=== PATIENT | male | born 1960 | race Caucasian/White ===

== ENCOUNTER → 2019-11-13 11:57 | Outpatient (CLI) | payer OTHER, BC, SELFPAY ==
--- NOTE | 2019-11-13 12:06 | XR_ITS ---
PROCEDURE: XR SHOULDER RT MIN 2V CLINICAL INDICATION: IMPINGEMENT OF RIGHT SHOULDER COMPARISON: No exams were available for comparison FINDINGS: No fracture, dislocation, lytic change, or blastic change evident. No significant degenerative change IMPRESSION: Negative right shoulder Dictated by: Zia Conway MD 11/13/2019 12:28 Electronically signed by Zia Conway MD in [place] 11/13/2019 12:28
== END ==
PROVIDERS: PCP Family Medicine; Visit Provider Internal Medicine Adolescent Medicine
DX: M75.41 Impingement syndrome of right shoulder (principal)
CPT/HCPCS: 73030

== ENCOUNTER 2019-12-20 11:00 | Outpatient (RCR) | payer OTHER, BC, SELFPAY ==
--- NOTE | 2019-11-25 11:22 | HMH.OTOPEV ---
OT Inpatient Evaluation Rehab OT Outpatient Eval Start: 11/25/19 10:18 Freq: Status: Active Protocol: Document 11/25/19 10:20 TRA (Rec: 11/25/19 10:42 TRA [id number]) Electronically Signed By Dayan Blevins, OT 11/25/19 10:20 Outpatient Therapy Subjective History Subjective History 59 year old male being referred to OP OT services after work related injury after reaching out and felt his right shoulder pop ~3 weeks ago. Patient stated inconsistent pain with right shoulder. Patient stated pain at worst is 5/10 and has been taking OTC pain medicine and applying ice to ease the pain. Patient reported no pain or injury with R wrist nor R hand per order stated. OT initial evaluation completed. View for more details. Chief Complaint Pain Symptom Type Ache Symptoms Relieved By Ice,OTC Meds Symptoms Aggravated By Physical Activity,Lifting Prior Functional Limitations None Current Functional Limitations Reaching,Lifting Symptom Description Intermittent Level of pain today (0-10) 0 Pain scale - at its best (0-10) 0 Pain scale - at its worst (0-10) 5 Shoulder/Elbow Eval Shoulder Objective Measurements Shoulder ROM Right Shoulder Abduction Active Range of 180 Motion (degrees) Shoulder Flexion Active Range of Motion 180 (degrees) Query Text: Shoulder Flexion Passive Range of Motion 180 (degrees) Shoulder External Rotation Active Range 90 of Motion (degrees) Shoulder Internal Rotation Active Range 70 of Motion (degrees) Shoulder MMT Shoulder Abduction Strength Grade 4 Good Shoulder Flexion Strength Grade 4 Good Shoulder Horizontal Abduction Strength 4 Good Grade Shoulder Horizontal Adduction Strength 4 Good Grade Shoulder External Rotation Strength 4 Good Grade Shoulder Internal Rotation Strength 4 Good Grade Shoulder Special Tests impingement sign present shoulder exam right standard Shoulder Drop Arm Test Positive Right Shoulder Empty Can (Supraspinatus) Test Positive Right Shoulder Lundy-Allan Impingement Positive Right Test Elbow Objective Measurements OT Outpatient Assessment
== END 2019-12-20 11:05 | disposition home or self-care (01) ==
LOC: OT 11:00
PROVIDERS: PCP Family Medicine; Visit Provider Internal Medicine Adolescent Medicine
DX: M25.511 Pain in right shoulder (principal); M25.531 Pain in right wrist; M79.641 Pain in right hand
CPT/HCPCS: 97014; 97033; 97035; 97110; 97165; G0283

== ENCOUNTER → 2020-01-29 10:44 | Outpatient (CLI) | payer BC, SELFPAY ==
[2020-01-29 14:15] LABS: Coronavirus 19 IgG Antibody Negative (Negative); Coronavirus 19 IgM Antibody Negative (Negative)
== END ==
PROVIDERS: Visit Provider Surgery
DX: Z01.818 Encounter for other preprocedural examination (principal); Z86.010 Personal history of colon polyps
CPT/HCPCS: 36415; 86328

== ENCOUNTER 2020-01-30 08:25 | Day surgery (SDC) | payer BC, SELFPAY ==
[2020-01-28 14:41] VITALS: BMI 24.4
[2020-01-30] VITALS (7 sets, daily range): BP systolic 81–126; BP diastolic 45–69; PULSE 43–53; RESP 16–18; TEMP 36.3–36.7; O2SAT 95–98
--- NOTE | 2020-01-30 09:49 | P.PN_ITS ---
[facility] Anesthesia Checklist - Patient Identification Patient Identification: Arm Band, Verbal (Name & ) - Structural Data Admitted From: Home Planned Operative Procedure/s: Colonoscopy Consent for Planned Operative Procedure(s) Verified: Yes Verified Documents: Surgical Consent, History and Physical - NPO Status Verified Time NPO: 00:00 - Chart Verification Results Verified: None - Additional verifications Anesthesia Reactions: No - Airway Assessment C-Spine Mobility Assessed: Yes TMJ Mobility Assessed: Yes Dentition: Good Dentition - Neurological Assessment Level of Consciousness: Awake, Alert, Appropriate, Follows Commands Hx Seizures: No Numbness or tingling in extremities: No - Anesthesia Plan Anesthesia Risk discussed: Yes Anesthesia Plan: Verified ASA Class: II Anesthesia Type: MAC [facility] History I have reviewed the patient's past medical history: Yes Medical History: Reports:: Gastroesophageal Reflux Disease(GERD), Hiatal Hernia, Kidney Stones Denies:: Cancer, Diabetes Mellitus Type 1, Diabetes Mellitus Type 2, Internal Pacemaker, MRSA, Seizures *Have you ever received a pneumonia vaccine?: No *Have you received a flu vaccine this season?: Yes Other Medical History: Reports: Sinus Problems Anesthesia experience/problems:: No prior complications Laterality Cases: Bilateral: Tonsillectomy Other Surgeries: Yes: Appendectomy. No: Pacemaker Amputation: No Fractures: Yes - *Social History Last grade of school completed: High school graduate Smoking Status: Never smoker Alcohol Intake: current Alcohol Intake Frequency:: holidays/special occasions only Substance Use Type: denies use *Occupational Status:: employed *Travel in the last 8 weeks: None Family Hx:: Diabetes, Heart Attack, Alcoholism
--- NOTE | 2020-01-30 10:37 | HMH.SCOPE ---
- Procedure: Date: 01/30/20 Procedure Performed:: Colonoscopy with polypectomy and tattoo placement Indications:: History of colon polyps Performing Provider:: Zac Hopper MD Referring Provider:: . Sedation:: Monitored anesthesia care Procedure:: After informed consent was obtained the patient was taken to the endoscopy suite. Sedation ensued after the patient was transferred to the left lateral decubitus position. Pulse, blood pressure, and oxygen saturation were monitored throughout the procedure. Digital rectal exam revealed no significant abnormality. The colonoscope was placed in position. The entire colon was evaluated. The colonoscope was carefully removed and the patient was transferred to recovery in stable condition. Please see findings and specimens below for detail. Findings:: Bowel preparation fair to moderate Patulous colon with significant lack of relaxation Hemorrhoidal cushions with no thrombosis or bleeding Complex 9 mm sessile polyp adjacent to ileocecal valve (snare and tattoo) Specimens:: Complex 9 mm sessile polyp adjacent to ileocecal valve (snare and tattoo) Recommendations:: Follow-up pathology Likely repeat colonoscopy in 6-12 months for close reevaluation of polypectomy site/area of tattoo. Complications:: No immediate Estimated blood obtained (mL): 1
== END 2020-01-30 11:25 | disposition home or self-care (01) ==
LOC: OUTP 08:26
PROVIDERS: PCP Family Medicine; Visit Provider Surgery
PROC: 0DJD8ZZ Inspection of Lower Intestinal Tract, Via Natural or Artificial Opening Endoscopic (ICD-10-PCS; CPT 45380; principal; 2020-01-30 09:30)
DX: Z12.11 Encounter for screening for malignant neoplasm of colon (principal); Z86.010 Personal history of colon polyps; Z87.19 Personal history of other diseases of the digestive system; K64.9 Unspecified hemorrhoids; K63.5 Polyp of colon; K63.89 Other specified diseases of intestine; Z79.899 Other long term (current) drug therapy; K21.9 Gastro-esophageal reflux disease without esophagitis; Z87.442 Personal history of urinary calculi; Z90.89 Acquired absence of other organs; Z83.3 Family history of diabetes mellitus; Z81.1 Family history of alcohol abuse and dependence; Z82.3 Family history of stroke
CPT/HCPCS: 45380; J2704

== ENCOUNTER → 2020-08-11 08:28 | Outpatient (CLI) | payer BC, SELFPAY ==
[2020-08-11 09:59] LABS: Coronavirus 19 IgG Antibody Negative (Negative); Coronavirus 19 IgM Antibody Negative (Negative)
== END ==
PROVIDERS: Visit Provider Surgery
DX: Z01.818 Encounter for other preprocedural examination (principal); Z20.822 Contact with and (suspected) exposure to COVID-19; Z12.11 Encounter for screening for malignant neoplasm of colon; Z86.010 Personal history of colon polyps
CPT/HCPCS: 86328

== ENCOUNTER 2020-08-13 06:26 | Day surgery (SDC) | payer BC, SELFPAY ==
[2020-08-06 14:31] VITALS: BMI 25.0
[2020-08-13] VITALS (10 sets, daily range): BP systolic 95–120; BP diastolic 55–81; PULSE 42–51; RESP 18–20; TEMP 36.1–36.3; O2SAT 95–100
--- NOTE | 2020-08-13 08:01 | P.PN_ITS ---
[facility] Anesthesia Checklist - Patient Identification Patient Identification: Verbal (Name & ) - Structural Data Admitted From: Home Planned Operative Procedure/s: colonoscopy Consent for Planned Operative Procedure(s) Verified: Yes Verified Documents: Surgical Consent - NPO Status Verified Time NPO: 00:00 - Additional verifications Anesthesia Reactions: No - Cardiovascular Assessment Heart Sounds: S1 & S2 Pulse Rhythm: Regular - Airway Assessment C-Spine Mobility Assessed: Yes TMJ Mobility Assessed: Yes Dentition: Good Dentition - Neurological Assessment Level of Consciousness: Awake - Anesthesia Plan Anesthesia Risk discussed: Yes ASA Class: II Anesthesia Type: MAC [facility] History I have reviewed the patient's past medical history: Yes Medical History: Reports:: Gastroesophageal Reflux Disease(GERD), Hiatal Hernia, Kidney Stones Denies:: Cancer, Diabetes Mellitus Type 1, Diabetes Mellitus Type 2, Internal Pacemaker, MRSA, Seizures *Have you ever received a pneumonia vaccine?: No *Have you received a flu vaccine this season?: Yes Other Medical History: Reports: Sinus Problems Anesthesia experience/problems:: none Laterality Cases: Bilateral: Tonsillectomy Other Surgeries: Yes: Appendectomy, Colonoscopy. No: Pacemaker Amputation: No Fractures: Yes - *Social History Last grade of school completed: High school graduate Smoking Status: Never smoker Alcohol Intake: current Alcohol Intake Frequency:: holidays/special occasions only Substance Use Type: denies use *Occupational Status:: employed Housing: house *Travel in the last 8 weeks: None Family Hx:: Diabetes, Heart Attack, Alcoholism
--- NOTE | 2020-08-13 09:06 | P.PCN_ITS ---
- Procedure: Date: 08/13/20 Patient Date of :: 1960 Procedure Performed:: Colonoscopy with polypectomy Indications:: Serrated adenoma of cecum (close to ileocecal valve) noted on recent colonoscopy. Lesion removed by way of snare. Area tattooed for close follow- up. Performing Provider:: Zac Hopper MD Referring Provider:: . Sedation:: Monitored anesthesia care Procedure:: After informed consent was obtained the patient was taken to the endoscopy suite. Sedation ensued after the patient was transferred to the left lateral decubitus position. Pulse, blood pressure, and oxygen saturation were monitored throughout the procedure. Digital rectal exam revealed no significant abnormality. The colonoscope was placed in position. The entire colon was evaluated. The colonoscope was carefully removed and the patient was transferred to recovery in stable condition. Please see findings and specimens below for detail. Findings:: Bowel preparation moderate (relatively poor in some areas) Fairly severe spasticity Significant lack of relaxation Small inflamed hemorrhoidal tag A few scattered sigmoid diverticuli Cecal tattoo site appeared normal Complex polyps (see specimens) Specimens:: 9 mm complex sessile transverse colon polyp requiring elevation (snare) Polyp at 50 cm Recommendations:: Timing of repeat colonoscopy is pending pathology but will likely be between 1-2 years secondary to history of significant polyps, limited bowel preparation, spasticity, and lack of relaxation. Complications:: No immediate Estimated blood obtained (mL): 1
--- NOTE | 2020-08-13 11:46 | SUR.PHASEII ---
PT STABLE, NO ABDOMINAL PAIN NOTED. TOLERATED CLEAR LIQUIDS WITHOUT DIFFICULTY.
== END 2020-08-13 11:51 | disposition home or self-care (01) ==
PROVIDERS: PCP Internal Medicine Adolescent Medicine; Visit Provider Surgery
PROC: 0DJD8ZZ Inspection of Lower Intestinal Tract, Via Natural or Artificial Opening Endoscopic (ICD-10-PCS; CPT 45380; principal; 2020-08-13 07:30)
DX: K63.5 Polyp of colon (principal); K58.9 Irritable bowel syndrome, unspecified; K64.0 First degree hemorrhoids; K57.30 Diverticulosis of large intestine without perforation or abscess without bleeding; Z86.010 Personal history of colon polyps; K21.9 Gastro-esophageal reflux disease without esophagitis; Z87.442 Personal history of urinary calculi; Z83.3 Family history of diabetes mellitus; Z82.49 Family history of ischemic heart disease and other diseases of the circulatory system; Z81.1 Family history of alcohol abuse and dependence; Z79.899 Other long term (current) drug therapy
CPT/HCPCS: 45380

== ENCOUNTER 2020-08-25 08:00 | Outpatient (RCR) | payer BC, SELFPAY ==
--- NOTE | 2020-08-10 11:09 | HMH.PTOPEV ---
PT Outpatient Evaluation Rehab PT Outpatient Evaluation Start: 08/10/20 11:01 Freq: Status: Active Protocol: Document 08/10/20 11:01 RITIKA (Rec: 08/10/20 11:09 RITIKA [id number]) Electronically Signed By Emiliano Loredo, PT 08/10/20 11:01 Outpatient Therapy Subjective History Subjective History Pt reports insidious onset L knee pain beginning ~2 months ago. Pt reports localized medial L knee pain kellie., w/ lunges and leg press with knees in slight ER from hip. Pt reports no significant improvement in s/s w/rest from 'leg work' in gym. Chief Complaint Pain,Weakness Symptom Type Ache,Dull Symptoms Relieved By Ice,OTC Meds Symptoms Aggravated By Physical Activity Prior Functional Limitations Squatting,Stairs Current Functional Limitations Squatting,Recreation Activity, Stairs Symptom Description Constant but Variable Level of pain today (0-10) 4 Pain scale - at its best (0-10) 3 Pain scale - at its worst (0-10) 7 Hip/Knee Eval Gait Observation General Gait Pattern Observation No Deviations/Normal Assistive Device Assistive Devices None / NA Palpation Tenderness left Knee Palpation Finding Tenderness Knee Palpation Overall Comment medial plica 2-3/4 MMT Hip Flexion Strength Grade 4 Good Hip Abduction Strength Grade 4 Good Hip Adduction Strength Grade 4- Good- Hip Extension Strength Grade 4- Good- Gluteus Allen Strength Grade 4 Good Hip External Rotation Strength Grade 4 Good Hip Internal Rotation Strength Grade 4- Good- Knee Extension Strength Grade 5 Normal Knee Flexion Strength Grade 5 Normal ROM Knee Flexion Active Range of Motion ( 0-130 degrees) Special Tests Knee Valgus Stress Test Negative Left Knee Varus Stress Test Negative Left Knee Ryan Test Negative Left Patellar Grind Test Positive Left Patellar Compression Test Positive Left Patella Houghston's Plica Test Positive Left Outpatient Therapy Assessment Impairments Problems/Impairmments Palpation Tenderness,Impaired Strength,Impaired Stair Climbing,Impaired Squatting, Impaired Recreational Activities,Subjective C/O Pain ,Impaired Self Care/Self Management Prognosis Rehab Potential Good Clinical Impression Consistent
== END 2020-12-23 14:42 | disposition home or self-care (01) ==
LOC: PT 08:00
PROVIDERS: PCP Family Medicine; Visit Provider Nurse Practitioner Family
DX: M25.562 Pain in left knee (principal)
CPT/HCPCS: 97010; 97014; 97033; 97035; 97110; 97163; G0283

== ENCOUNTER → 2020-09-23 14:27 | Outpatient (CLI) | payer BC, SELFPAY ==
--- NOTE | 2020-09-23 15:53 | MR_ITS ---
PROCEDURE: MR KNEE LT WO CON CLINICAL INDICATION: MEDIAL LEFT KNEE PAIN, NO INJURY Pt c/o medial lt knee pain [id number]. No known injury or trauma. COMPARISON: No exams were available for comparison TECHNIQUE: Routine multiplanar multi echo sequences are performed without gadolinium enhancement. FINDINGS: The cruciate ligaments, collateral ligaments, patellar tendon, and quadriceps tendon appear intact. Horizontal increased T2 signal is present within the posterior horn medial meniscus but does not extend to the articular surface and does not meet MRI criteria for meniscal tear. The patellar cartilage is well preserved. There is a small knee joint effusion. No bone marrow edema or osteochondral defects. There is minimal spurring along the posterior patella. IMPRESSION: 1. No internal derangement. 2. 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
== END ==
PROVIDERS: PCP Internal Medicine Adolescent Medicine; Visit Provider Nurse Practitioner Family
DX: M25.562 Pain in left knee (principal)
CPT/HCPCS: 73721

== ENCOUNTER → 2020-09-25 08:39 | Outpatient (CLI) | payer BC, SELFPAY ==
--- NOTE | 2020-09-25 08:42 | XR_ITS ---
PROCEDURE: XR CHEST 2V CLINICAL HISTORY: PERSISTENT COUGH COMPARISON: No exams were available for comparison FINDINGS: The cardiomediastinal silhouette and pulmonary vascularity are within normal limits. The lungs are clear without infiltrates, suspicious nodules, or pleural effusions. No acute bony abnormalities. IMPRESSION: No acute findings. Dictated by: Zia Conway MD 09/25/2020 09:10 Zia Conway MD in [place] 09/25/2020 09:10
== END ==
PROVIDERS: PCP Physician Assistant; Visit Provider Internal Medicine Adolescent Medicine
DX: R05 Cough (principal)
CPT/HCPCS: 71046

== ENCOUNTER → 2021-04-07 09:03 | Outpatient (CLI) | payer BC, SELFPAY | PROVIDERS: Visit Provider Surgery | DX: Z01.812 Encounter for preprocedural laboratory examination (principal); Z11.52 Encounter for screening for COVID-19; K40.90 Unilateral inguinal hernia, without obstruction or gangrene, not specified as recurrent | CPT/HCPCS: C9803; U0003; U0005 ==

== ENCOUNTER 2021-04-09 06:03 | Day surgery (SDC) | payer BC, SELFPAY ==
[2021-04-05 10:17] VITALS: BMI 24.4
[2021-04-09] VITALS (13 sets, daily range): BP systolic 101–128; BP diastolic 53–72; PULSE 41–54; RESP 15–18; TEMP 36.3–43; O2SAT 95–100
[2021-04-09 06:21] LABS: Microscopic, Urine URINE MICROSCOPIC (MICROSCOPIC)
[2021-04-09 06:23] LABS: Appearance,Urine CLEAR (Clear); Bilirubin,Urine Negative (Negative); Blood, Urine Negative (Negative); Color,Urine YELLOW (Yellow); Glucose,Urine (UA) Negative (Negative); Ketones,Urine Negative (Negative); Leukocyte Esterase,Urine Negative (Negative); Nitrate,Urine Negative (Negative); Protein,Urine Negative (Negative); Specific Gravity, Urine 1.025 (1.005-1.030); Urobilinogen,Urine 0.2 EU/dl (0.2)
[2021-04-09 06:36] LABS: Bacteria,Urine Trace /lpf; Mucus,Urine 2+ /lpf; WBC,Urine Occasional #/hpf (0-3)
[2021-04-09 06:37] LABS: Basophils # 0.1 K/mm3 (0-0.2); Basophils % 0.8 % (0.1-2.0); Eosinophils # 0.3 K/mm3 (0.0-0.4); Eosinophils % 5.1 % (0.1-12.0); Hematocrit 43.3 % (42.0-52.0); Hemoglobin 14.4 g/dL (14.1-18.0); Lymphocytes # 1.8 K/mm3 (0.7-4.5); Lymphocytes % 26.6 % (10-50); Mean Corpuscular HGB Conc 33.2 g/dL (31.8-35.4); Mean Corpuscular Hemoglobin 32.2 pg (27.0-31.2); Mean Platelet Volume 8.7 fl (7.4-10.4); Monocytes # 0.5 K/mm3 (0.1-1.0); Monocytes % 7.4 % (1.7-9.3); Neutrophils # 3.9 K/mm3 (1.8-7.8); Neutrophils % 60.1 % (37.0-80.0); Platelet Count 216 K/mm3 (142-424); Red Blood Count 4.47 M/mm3 (4.60-6.20); Red Cell Distribution Width 12.9 % (11.5-17.5); White Blood Count 6.6 K/mm3 (4.8-10.8)
[2021-04-09 06:41] LABS: Chloride 104 mmol/L (98-107); Potassium 3.8 mmoL/L (3.5-5.1); Sodium 140 mmol/L (136-145)
[2021-04-09 06:44] LABS: Anion Gap 10.8 mEq/L (5-15); Blood Urea Nitrogen 12 mg/dl (9-20); Carbon Dioxide 29 mmol/L (22.0-30.0); Creatinine Clearance Estimated 104 mL/min (50-200); Estimated Glomerular Filt Rate 86 ml/min (>60); GFR (African American) 104 ML/MIN (>60); Glucose 93 mg/dl (74-100)
--- NOTE | 2021-04-09 07:08 | HMH.ANESCL ---
[facility] Anesthesia Checklist - Patient Identification Patient Identification: Arm Band - Structural Data Admitted From: Home Planned Operative Procedure/s: Inguinal hernia repair Consent for Planned Operative Procedure(s) Verified: Yes - NPO Status Verified Time NPO: 00:00 - Additional verifications Anesthesia Reactions: No Hx Blood Transfusions: No Blood Transfusion Reaction: No - Airway Assessment C-Spine Mobility Assessed: Yes TMJ Mobility Assessed: Yes Dentition: Good Dentition - Neurological Assessment Level of Consciousness: Awake Hx Seizures: No Numbness or tingling in extremities: No - Anesthesia Plan Anesthesia Risk discussed: Yes Anesthesia Plan: Verified ASA Class: I Anesthesia Type: General [facility] History I have reviewed the patient's past medical history: Yes Medical History: Reports:: Hiatal Hernia, Kidney Stones Denies:: Cancer, Diabetes Mellitus Type 1, Diabetes Mellitus Type 2, Internal Pacemaker, MRSA, Seizures *Have you ever received a pneumonia vaccine?: No *Have you received a flu vaccine this season?: No Other Medical History: Reports: Sinus Problems. Denies: Blood Transfusion Reaction Anesthesia experience/problems:: None Laterality Cases: Bilateral: Tonsillectomy Other Surgeries: Yes: Appendectomy, Colonoscopy. No: Pacemaker Amputation: No Fractures: No - *Social History Last grade of school completed: High school graduate Smoking Status: Never smoker Alcohol Intake: current Alcohol Intake Frequency:: a few times a week Substance Use Type: denies use *Occupational Status:: employed Housing: house Household Members: none *Travel in the last 8 weeks: None Family Hx:: Diabetes
--- NOTE | 2021-04-09 08:57 | HMH.OPNOTE ---
Date of procedure: 04/09/21 Pre-op Diagnosis:: Left inguinal hernia Post-op Diagnosis:: Same Procedure performed:: Open left inguinal hernia repair Surgeon:: Zac Hopper MD [employer] COMPTROLLER:: Kaleb Aguirre Anesthesia: ANURAG Estimated blood loss (mL): 10 Operative findings:: Direct defect Operative note:: After informed consent was obtained the patient was taken to the operating room and placed in the supine position. General anesthesia was induced and his abdomen/groin/scrotum was prepped and draped in a sterile fashion. After infiltration local anesthetic an oblique left groin incision was made. A combination of sharp dissection and electrocautery was utilized to transect through Kelly's fascia to the level of the external aponeurosis. The external aponeurosis was sharply opened to the level of the external ring. The contents of the canal were carefully elevated. An obvious direct defect was encountered. A large PerFix plug was secured in position utilizing interrupted Ethibond. The PerFix overlay was then secured to the shelving edge inferiorly and fascial margin superiorly with interrupted Ethibond. The external aponeurosis was reapproximated with running Vicryl suture. Kelly's fascia was closed in a similar manner. Skin was then closed with 3-0 Stratafix. Dressings were applied and the patient was transferred recovery in stable condition after extubation. Condition: stable Disposition: PACU Specimens:: None Complications:: No immediate
--- NOTE | 2021-04-09 09:07 | HMH.ANESI ---
[facility] Anesthesia Record Part I Intake, IV Amount: 1,400 Estimated blood loss (mL): 10 Urine output (mL): 500 Blood Pressure: 111/53 SaO2: 95 Pulse Rate: 53 Respiratory Rate: 16 Temperature: 97.4 F Patient is:: Drowsy, Stable Stable to PACU at:: 09:05
--- NOTE | 2021-04-09 14:14 | HMH.ANESII ---
[facility] Anesthesia Record Part II Discharge Time: 09:35 Destination: Surgical Day Care (OP Surgery) PACU nurse assessment reviewed?: Yes Patient Condition:: Good Anesthesia Complications:: None Swallowing reflex intact?: Yes Cyanosis?: No Blood Pressure: 122/72 Pulse Rate: 50 Temperature: 97.5 F Mental Status: Alert & Oriented Pain level:: 0 Nausea and/or vomitting:: None Intake, IV Amount: 0
[2021-04-09 14:38] LABS: Microscopic,Cath URINE MICROSCOPIC (MICROSCOPIC)
[2021-04-09 14:51] LABS: Appearance,Urine/Cath CLEAR (Clear); Bilirubin,Cath Negative (Negative); Blood, Urine/Cath Negative (Negative); Color,Urine/Cath YELLOW (Yellow); Glucose,Urine/Cath (UA) Negative (Negative); Ketones,Urine/Cath Negative (Negative); Leukocyte Esterase,Cath Negative (Negative); Nitrate,Cath Negative (Negative); PH,Urine/Cath 6.5 (5.0-8.5); Protein,Urine/Cath Negative (Negative); Specific Gravity, Urine/Cath 1.015 (1.005-1.030); Urobilinogen,Cath 0.2 EU/dl (0.2)
[2021-04-09 15:06] LABS: WBC,Urine/Cath Occasional #/hpf (0-3)
== END 2021-04-09 12:00 | disposition home or self-care (01) ==
LOC: OR 06:05
PROVIDERS: PCP Physician Assistant; Visit Provider Surgery
PROC: (CPT 49505; principal; 2021-04-09 07:30)
DX: K40.90 Unilateral inguinal hernia, without obstruction or gangrene, not specified as recurrent (principal); Z79.899 Other long term (current) drug therapy; Z87.442 Personal history of urinary calculi; Z90.49 Acquired absence of other specified parts of digestive tract; Z83.3 Family history of diabetes mellitus
CPT/HCPCS: 49505; 80048; 81001; 85025; 96374; J2405; J2710

== ENCOUNTER → 2021-07-10 09:08 | Outpatient (CLI) | payer BC, SELFPAY | PROVIDERS: PCP Internal Medicine Adolescent Medicine; Visit Provider Surgery | DX: Z01.812 Encounter for preprocedural laboratory examination (principal); Z11.52 Encounter for screening for COVID-19; Z12.11 Encounter for screening for malignant neoplasm of colon | CPT/HCPCS: C9803; U0003; U0005 ==

== ENCOUNTER 2021-07-13 06:35 | Day surgery (SDC) | payer BC, SELFPAY ==
[2021-07-09 14:19] VITALS: BMI 24.4
[2021-07-13] VITALS (8 sets, daily range): BP systolic 99–130; BP diastolic 65–79; PULSE 60–85; RESP 16–18; TEMP 36.2–36.4; O2SAT 95–100
--- NOTE | 2021-07-13 08:02 | HMH.SCOPE ---
- Procedure: Date: 07/13/21 Patient Date of :: 1960 Procedure Performed:: Colonoscopy with polypectomy by means other than snare Indications:: History of colon polyps. History of large complex colon polyps including serrated adenoma in the periappendiceal region. Performing Provider:: Zac Hopper MD Referring Provider:: . Sedation:: Monitored anesthesia care Procedure:: After informed consent was obtained the patient was taken to the endoscopy suite. Sedation ensued after the patient was transferred to the left lateral decubitus position. Pulse, blood pressure, and oxygen saturation were monitored throughout the procedure. Digital rectal exam revealed no significant abnormality. The colonoscope was placed in position. The entire colon was evaluated. The colonoscope was carefully removed and the patient was transferred to recovery in stable condition. Please see findings and specimens below for detail. Findings:: Hemorrhoidal cushions Moderate bowel preparation Fairly severe lack of relaxation/spasticity Tattoo site (periappendiceal region and ileocecal valve region) appeared normal Small adjacent polyps at 70 cm Specimens:: Adjacent polyps at 70 cm Recommendations:: Timing of repeat colonoscopy is pending pathology but will likely be around 2-3 years secondary to history of significant polyps and limitations in visualization. Complications:: No immediate Estimated blood obtained (mL): 1
--- NOTE | 2021-07-13 16:31 | HMH.ANESCL ---
[facility] Anesthesia Checklist - Patient Identification Patient Identification: Arm Band, Verbal (Name & ) - Structural Data Admitted From: Home Planned Operative Procedure/s: Colonoscopy Consent for Planned Operative Procedure(s) Verified: Yes Verified Documents: Surgical Consent - NPO Status Verified Time NPO: 00:00 - Additional verifications Anesthesia Reactions: No Hx Blood Transfusions: No Blood Transfusion Reaction: No - Airway Assessment C-Spine Mobility Assessed: Yes TMJ Mobility Assessed: Yes Dentition: Good Dentition - Neurological Assessment Level of Consciousness: Awake, Alert, Appropriate - Anesthesia Plan Anesthesia Risk discussed: Yes ASA Class: II Anesthesia Type: General [facility] History I have reviewed the patient's past medical history: Yes Medical History: Reports:: Gastroesophageal Reflux Disease(GERD), Hiatal Hernia, Kidney Stones Denies:: Cancer, Diabetes Mellitus Type 1, Diabetes Mellitus Type 2, Internal Pacemaker, MRSA, Seizures *Have you ever received a pneumonia vaccine?: No *Have you received a flu vaccine this season?: Yes Other Medical History: Reports: Sinus Problems. Denies: Blood Transfusion Reaction Anesthesia experience/problems:: none Laterality Cases: Right: Arthroscopy Knee, Bilateral: Tonsillectomy Other Surgeries: Yes: Appendectomy, Colonoscopy, Hernia Repair. No: Pacemaker Amputation: No Fractures: No - *Social History Last grade of school completed: High school graduate Smoking Status: Never smoker Alcohol Intake: current Alcohol Intake Frequency:: a few times a week Substance Use Type: denies use *Occupational Status:: employed Housing: house Household Members: none *Travel in the last 8 weeks: None Family Hx:: Diabetes
== END 2021-07-13 09:25 | disposition home or self-care (01) ==
LOC: OUTP 06:36
PROVIDERS: PCP Physician Assistant; Visit Provider Surgery
PROC: 0DJD8ZZ Inspection of Lower Intestinal Tract, Via Natural or Artificial Opening Endoscopic (ICD-10-PCS; CPT 45380; principal; 2021-07-13 07:30)
DX: Z12.11 Encounter for screening for malignant neoplasm of colon (principal); K58.9 Irritable bowel syndrome, unspecified; K64.9 Unspecified hemorrhoids; K63.5 Polyp of colon; Z86.010 Personal history of colon polyps; K21.9 Gastro-esophageal reflux disease without esophagitis; K44.9 Diaphragmatic hernia without obstruction or gangrene; Z87.442 Personal history of urinary calculi; Z90.49 Acquired absence of other specified parts of digestive tract; Z83.3 Family history of diabetes mellitus; Z79.899 Other long term (current) drug therapy
CPT/HCPCS: 45380; J2405

== ENCOUNTER → 2021-08-13 08:46 | Outpatient (CLI) | payer BC, SELFPAY ==
--- NOTE | 2021-08-13 08:55 | US_ITS ---
FINAL REPORT CLINICAL HISTORY: ELEVATED BILIRUBIN FINDINGS: Sonographic images of the abdomen were obtained. The liver has an unremarkable appearance with normal echogenicity. The gallbladder has an unremarkable appearance without evidence of gallstones. There is no evidence of biliary ductal dilatation. The common hepatic duct measures 3 mm, which is within normal limits. Limited images of the pancreas are unremarkable. The spleen size is normal. The right kidney measures in length. The left kidney measures in length. There is normal renal echogenicity. There is no evidence of hydronephrosis. The aorta has an unremarkable appearance. Limited images of the inferior vena cava are unremarkable. IMPRESSION: Unremarkable abdominal ultrasound with no acute abnormality identified. Reviewed, Interpreted and Dictated by Edison Vargas III, MD Transcribed by Bethany Jenkins Authenticated by Edison Vargas III, MD on 08/13/2021 10:26:04 AM [facility]
[2021-08-13 09:56] LABS: Basophils # 0.1 K/mm3 (0-0.2); Basophils % 1.1 % (0.1-2.0); Eosinophils # 0.1 K/mm3 (0.0-0.4); Eosinophils % 2.2 % (0.1-12.0); Hematocrit 44.1 % (42.0-52.0); Hemoglobin 14.5 g/dL (14.1-18.0); Lymphocytes # 1.9 K/mm3 (0.7-4.5); Mean Corpuscular HGB Conc 32.8 g/dL (31.8-35.4); Mean Corpuscular Hemoglobin 31.6 pg (27.0-31.2); Mean Corpuscular Volume 96.4 fl (80-94); Mean Platelet Volume 8.6 fl (7.4-10.4); Monocytes # 0.4 K/mm3 (0.1-1.0); Monocytes % 6.4 % (1.7-9.3); Neutrophils % 61.3 % (37.0-80.0); Platelet Count 256 K/mm3 (142-424); Red Blood Count 4.57 M/mm3 (4.60-6.20); Red Cell Distribution Width 12.9 % (11.5-17.5); White Blood Count 6.5 K/mm3 (4.8-10.8)
[2021-08-13 10:12] LABS: Chloride 102 mmol/L (98-107); Potassium 4.1 mmoL/L (3.5-5.1); Sodium 137 mmol/L (136-145)
[2021-08-13 10:14] LABS: Albumin Level 4.6 g/dl (3.5-5.0)
[2021-08-13 10:15] LABS: Alanine Aminotransferase 22 U/L (12-78); Alkaline Phosphatase 92 U/L (38-126); Anion Gap 11.1 mEq/L (5-15); Aspartate Amino Transferase 37 U/L (17-59); Bilirubin,Direct 0.3 mg/dl (0.0-0.4); Bilirubin,Indirect 1.2 mg/dL (0.0-0.9); Bilirubin,Total 1.5 mg/dl (0.2-1.3); Blood Urea Nitrogen 18 mg/dl (9-20); Calcium 8.7 mg/dl (8.4-10.2); Carbon Dioxide 28 mmol/L (22.0-30.0); Estimated Glomerular Filt Rate 76 ml/min (>60); GFR (African American) 92 ML/MIN (>60); Glucose 86 mg/dl (74-100)
[2021-08-13 10:16] LABS: Albumin/Globulin Ratio 1.8 (1.1-1.8); Globulin 2.6 g/dL (1.3-3.2); Total Protein,Serum 7.2 g/dl (6.3-8.2)
[2021-08-14 08:15] LABS: Hep A Ab, IgM Negative (Negative); Hepatitis B Core Antibody IgM Negative (Negative); Hepatitis B Surface Antigen Negative (Negative); Hepatitis C Antibody <0.1 s/co ratio (0.0-0.9)
[2021-08-14 13:22] LABS: Mitochondrial (M2) Antibody <20.0 Units (0.0-20.0)
[2021-08-17 05:40] LABS: ALT (SGPT) P5P 20 IU/L (0-55); AST (SGOT) P5P 36 IU/L (0-40); Alpha 2-Macroglobulins, Qn 180 mg/dL (110-276); Apolipoprotein A-1 130 mg/dL (101-178); Cholesterol, Total 238 mg/dL (100-199); Fibrosis Stage F1-F2 (.); GGT 21 IU/L (0-65); Glucose 87 mg/dL (65-99); Haptoglobin 89 mg/dL (29-370); NASH Score 0.25 (0.25); Steatosis Score 0.35 (0.00-0.30); Triglycerides 98 mg/dL (0-149)
== END ==
PROVIDERS: PCP Internal Medicine Adolescent Medicine; Visit Provider Nurse Practitioner Family
DX: R17 Unspecified jaundice (principal); K76.0 Fatty (change of) liver, not elsewhere classified
CPT/HCPCS: 36415; 76705; 80053; 80074; 82248; 85025; 86256

== ENCOUNTER → 2021-09-01 08:51 | Outpatient (CLI) | payer BC, SELFPAY ==
[2021-09-01 09:20] LABS: Basophils # 0.1 K/mm3 (0-0.2); Basophils % 1.3 % (0.1-2.0); Eosinophils # 0.3 K/mm3 (0.0-0.4); Eosinophils % 4.1 % (0.1-12.0); Hematocrit 42.5 % (42.0-52.0); Hemoglobin 14.1 g/dL (14.1-18.0); Lymphocytes # 1.8 K/mm3 (0.7-4.5); Lymphocytes % 30.2 % (10-50); Mean Corpuscular HGB Conc 33.1 g/dL (31.8-35.4); Mean Corpuscular Hemoglobin 32.4 pg (27.0-31.2); Mean Corpuscular Volume 97.8 fl (80-94); Mean Platelet Volume 8.2 fl (7.4-10.4); Monocytes # 0.4 K/mm3 (0.1-1.0); Monocytes % 7.1 % (1.7-9.3); Neutrophils # 3.5 K/mm3 (1.8-7.8); Neutrophils % 57.4 % (37.0-80.0); Platelet Count 197 K/mm3 (142-424); Red Blood Count 4.35 M/mm3 (4.60-6.20); Red Cell Distribution Width 13.3 % (11.5-17.5); White Blood Count 6.1 K/mm3 (4.8-10.8)
[2021-09-01 09:26] LABS: INR 0.97 (0.9-1.1)
[2021-09-01 10:15] LABS: Alanine Aminotransferase 23 U/L (12-78); Albumin Level 4.3 g/dl (3.5-5.0); Albumin/Globulin Ratio 1.7 (1.1-1.8); Alkaline Phosphatase 83 U/L (38-126); Anion Gap 9.2 mEq/L (5-15); Aspartate Amino Transferase 36 U/L (17-59); Bilirubin,Total 1.2 mg/dl (0.2-1.3); Blood Urea Nitrogen 17 mg/dl (9-20); Carbon Dioxide 27 mmol/L (22.0-30.0); Chloride 107 mmol/L (98-107); Estimated Glomerular Filt Rate 76 ml/min (>60); GFR (African American) 92 ML/MIN (>60); Globulin 2.5 g/dL (1.3-3.2); Glucose 94 mg/dl (74-100); Potassium 4.2 mmoL/L (3.5-5.1); Sodium 139 mmol/L (136-145); Total Protein,Serum 6.8 g/dl (6.3-8.2)
[2021-09-01 11:19] LABS: Iron 114 ug/dL (49-181)
[2021-09-01 11:29] LABS: Total Iron Binding Capacity 328 ug/dL (261-462)
[2021-09-01 11:56] LABS: Ferritin 96.6 ng/ml (17.9-464)
[2021-09-02 08:25] LABS: Immunoglobulin A, Qn 174 mg/dL (90-386); Immunoglobulin G, Qn 1158 mg/dL (603-1613); Immunoglobulin M, Qn 97 mg/dL (20-172)
[2021-09-02 14:17] LABS: Actin (Smooth Muscle) Antibody 8 Units (0-19); Angiotensin Converting Enzyme 33 U/L (14-82); Mitochondrial (M2) Antibody <20.0 Units (0.0-20.0)
[2021-09-02 15:12] LABS: Deamidated Gliadin Abs, IgG 2 units (0-19); Tissue Transglutaminase IgA Ab <2 U/mL (0-3); Tissue Transglutaminase IgG Ab <2 U/mL (0-5)
[2021-09-02 16:37] LABS: Endomysial IgA Antibody Negative (Negative)
[2021-09-03 14:47] LABS: Deamidated Gliadin Abs, IgA 4 units (0-19)
[2021-09-04 07:11] LABS: Reticulin IgA Antibody Negative titer (Neg:<1:2.5)
[2021-09-06 17:20] LABS: Alpha-1-Antitrypsin 75 mg/dL (101-187); Phenotype (PI) MZ (.)
[2021-09-12 21:56] LABS: Antinuclear Antibodies (ANA) Negative
== END ==
PROVIDERS: Visit Provider Nurse Practitioner Family
DX: R17 Unspecified jaundice (principal); R94.5 Abnormal results of liver function studies; K74.00 Hepatic fibrosis, unspecified
CPT/HCPCS: 36415; 80053; 81256; 82103; 82104; 82164; 82390; 82728; 82784; 83516; 83540; 83550; 85025; 85610; 86038; 86255; 86256; 86376

== ENCOUNTER → 2022-04-05 08:28 | Outpatient (POV) | payer BC, SELFPAY | PROVIDERS: Visit Provider Dermatology | DX: Z00.00 Encounter for general adult medical examination without abnormal findings (principal) ==

== ENCOUNTER 2022-07-28 10:00 | Outpatient (RCR) | payer BC, SELFPAY ==
--- NOTE | 2022-06-29 11:18 | HMH.PTOPEV ---
PT Outpatient Evaluation Rehab PT Outpatient Evaluation Start: 06/29/22 10:04 Freq: Status: Active Protocol: Document 06/29/22 10:04 ALMA (Rec: 06/29/22 11:17 ALMA [id number]) E-signed By Kate Willis, PT Outpatient Therapy Subjective History Subjective History Pt is a 62 y/o male that reports onset of bilateral knee pain after skiing for the first time ~1 week after D[place]. Pt reports the left knee has since improved but continues to have intermittent right medial knee pain. Pt reports he had arthroscopic repair of the right medial mensicus 1.5 years ago wtihout complications but reports he did feel a pop in the right knee while skiing. Pt reports intermittent swelling of the medial knee and limping with walking. Pt denies a sense of instability or falls. Pt reports right knee pain is aggravated by locking the knee and twisting on the RLE. Pt also reports onset of localized right posterior hip pain 2 months ago that he thinks occurred after performing a stiff leg deadlift. Pt denies paresthesia. Pt reports hip pain is dull and occurs with prolonged activity and putting all his weight on the RLE. Pt denies having imaging of the knee or the hip recently. Pt reports he is very active and works out every body part 2x/ week. Pt reports he lifted legs yesterday without pain. Pt reports he is going on a ski trip at the beginning of July and would like to attempt skiing if able. 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
--- NOTE | 2022-07-25 11:52 | HMH.RHREAS ---
Rehab Reassessment Rehab OP Re-assessment Start: 07/25/22 10:11 Freq: Status: Active Protocol: Document 07/25/22 10:11 ALMA (Rec: 07/25/22 11:52 ALMA [id number]) E-signed By Kate Willis PT Rehab Re-assessment Subjective Subjective Pt reports overall his right knee feels a lot better, states he went on a skiing trip without any pain in the knee. Pt reports his right hip continues to bother him but denies worsening with skiing. Pt reports he does not think the two trials of dry needling helped and he continues to have pain with prolonged standing and occasional limp due to pain. Pt reports hip pain at worst as 9/10 within the last week. Objective Objective Notes TTP of the right glute med/min R hip MMT: ext 4-/5, abd 4/5 Assessment Progress Assessment Progressing as Expected Assessment Notes Pt has attended 5 PT visits consisting of treatment for the right knee and hip with good tolerance. Pt reports his rght knees has improved greatly but continues to have right localized hip pain with prolonged standing and walking that often causes a limp. Pt would continue to benefit from skilled PT to further improve right hip pain severity, LE AROM, strength, and functional activity tolerance to assist with return to PLOF. Patient goals met ST/4 Goals Not Met p! severity at worst Revised Goals n/a Plan Plan Continue initial POC, focus on hip pain Frequency of Therapy 2x/week Duration of therapy 4 more weeks Time and Billing Re-Eval Time 10 Re-Eval Billing Units 1 PHYSICIAN CERTIFICATION: I certify the specified therapy services for Patel Apodaca are required, authorized, and reviewed every 30 days.
== END 2022-07-28 10:05 | disposition home or self-care (01) ==
LOC: PT 10:00
PROVIDERS: PCP Internal Medicine Adolescent Medicine; Visit Provider Nurse Practitioner Family
DX: M25.561 Pain in right knee (principal); M25.551 Pain in right hip
CPT/HCPCS: 97010; 97014; 97110; 97112; 97140; 97163; 97164; 97530; G0283

== ENCOUNTER → 2022-11-24 10:59 | Outpatient (CLI) | payer BC, SELFPAY ==
--- NOTE | 2022-11-24 11:06 | XR_ITS ---
FINAL REPORT CLINICAL HISTORY: SACROILILIAC PAIN FINDINGS: Three views of the sacroiliac joints: Multiple views of the sacroiliac joints failed to reveal any evidence of acute fracture or dislocation. No significant bony abnormality is identified. IMPRESSION: No acute bony abnormality identified. Reviewed, Interpreted and Dictated by Edison Vargas III, MD Transcribed by Modesta Carter Authenticated and [facility]
== END ==
PROVIDERS: PCP Nurse Practitioner Family; Visit Provider Nurse Practitioner Family
DX: M53.3 Sacrococcygeal disorders, not elsewhere classified (principal)
CPT/HCPCS: 72202

== ENCOUNTER → 2022-12-07 13:32 | Outpatient (POV) | payer BC, SELFPAY ==
--- NOTE | 2022-12-07 13:45 | EXP.PAIN.OV ---
HPI Data of Consult Patient: new to practice Consult date: 12/07/22 Requesting Physician: Kate Olmstead APRN Primary Care Provider: Simone Lozano MD Consult Narrative History of present illness: Mr. Apodaca is a 62 year old male who presents today as a new patient. He is a referral from Gracie Olivares's office. Today he rates his pain a 1 out of 10. Patient states he is experiencing pain in his low back along the right side that radiates down into his right hip and past his right hamstring. Patient does state this has been going on since May and that is not always constant however seems to be aggravated when he is at the gym doing exercises. Patient does describe this as an aching sensation that is worse with increased activity. He states when it does flareup he frequently cannot tolerate prolonged standing or walking due to the pain. Patient denies any previous lumbar imaging. Patient states he has tried cofj-wdu-zemshlb Tylenol and ibuprofen along with heat and ice and topicals with minimal improvement. He states that he is planning on going on vacation in approximately 3 weeks and would like to have improvement before then. Patient is currently on testosterone therapy from an outside provider. Patient has been to physical therapy for approximately 6 weeks and states he did not notice any additional improvement. His Sloan is [phone]. Its been reviewed and appropriate. CC: Kate Olmstead APRN [facility] Disclaimer: The information contained in this section may have been updated after the patient was seen, as this information can be updated by other users. Medical History (Updated 12/07/22 @ 14:23 by Kate Olmstead APRN) GERD (gastroesophageal reflux disease) Hiatal hernia Kidney stones Surgical History (Updated 12/07/22 @ 14:09 by Mireya Florez RN) H/O colonoscopy H/O right knee surgery Hx of tonsillectomy Family History (Updated 12/07/22 @ 14:09 by Mireya Florez RN) Other Diabetes Social History (Updated 12/07/22 @ 14:10 by Mireya Florez RN) Smoking Status: Never smoker second hand exposure: No alcohol intake: current substance use type: denies use current occupational status: unemployed Travel in the last 8 weeks: None household members: none housing: house 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 current occupational exposures/hazards: No caffeine: Yes Review of Systems Review of Systems Review of systems:: pertinent systems reviewed and negative unless documented below Review of systems (narrative): Review of Systems: General: No recent weight changes, no fever, no sleep disturbances Respiratory: No cough, no shortness of air, no recurring pulmonary infections Cardiovascular/peripheral vascular: No chest pain, no palpitations, no edema, no shortness of breath Gastrointestinal: No new onset incontinence, normal bowel movements reported Genitourinary: No new onset incontinence Musculoskeletal: Low back pain, right hip pain, right leg pain Psychiatric: [Normal mood/affect] Neurological: [Denies weakness in extremities], [denies balance issues] Meds Home Medications and Allergies Home Medications Medication Instructions Recorded Confirmed Type levocetirizine 5 mg tablet (Xyzal) 5 mg PO DAILY allergies 01/17/20 12/07/22 History montelukast 10 mg tablet 10 mg PO DAILY allergies 01/17/20 12/07/22 History (Singulair) zolpidem 10 mg tablet (Ambien) 10 mg PO QHS PRN Sleep 01/17/20 12/07/22 History New Prescriptions to Start Prescriptions: Allergies Allergy/AdvReac Type Severity Reaction Status Date / Time No Known Drug Allergies Allergy Unknown Verified 07/21/21 10:32 Objective Narrative: Physical Exam: General: Alert and oriented x3, no acute distress, pleasant and cooperative Lungs: Respirations even and unlabored, symmetrical chest expansion Eyes: PERRL Musculoskeletal: Flexion and extension of lumbar [spine] somewhat guarded secondary to pain,
[2022-12-07 14:07] VITALS: BP 119/62; PULSE 62; RESP 18; O2SAT 99; BMI 23.1
== END | disposition home or self-care (01) ==
PROVIDERS: PCP Internal Medicine Adolescent Medicine; Visit Provider Nurse Practitioner Family
DX: M54.50 Low back pain, unspecified (principal); M25.551 Pain in right hip; M79.604 Pain in right leg
CPT/HCPCS: 99202; G0463

== ENCOUNTER → 2022-12-07 14:24 | Outpatient (CLI) | payer BC, SELFPAY ==
--- NOTE | 2022-12-07 14:28 | XR_ITS ---
FINAL REPORT CLINICAL HISTORY: LBP FINDINGS: LUMBAR SPINE Five views demonstrate no acute fracture. There is dextroscoliosis. There are mild and moderate degenerative changes. There is no malalignment. IMPRESSION: Degenerative changes as above. Reviewed, Interpreted and Dictated by Edison Vargas III, MD Transcribed by Yolie Rizvi Authenticated and [facility]
== END ==
PROVIDERS: PCP Internal Medicine Adolescent Medicine; Visit Provider Nurse Practitioner Family
DX: M54.50 Low back pain, unspecified (principal)
CPT/HCPCS: 72110

== ENCOUNTER → 2023-01-13 13:32 | Outpatient (CLI) | payer BC, SELFPAY ==
--- NOTE | 2023-01-13 13:34 | MR_ITS ---
FINAL REPORT CLINICAL HISTORY: LOWER BACK PAIN since may 2022 COMPARISON: None FINDINGS: Multiplanar MR imaging of the lumbar spine was performed without contrast. There is dextroscoliosis of the lumbar spine. On the sagittal T2-weighted images, disc degeneration is seen at multiple levels. There are endplate changes at multiple levels. There is mild anterolisthesis of L5 on S1. There is no evidence of fracture. No bony mass is identified. The conus has an unremarkable appearance. T12-L1: Annular disc bulge, facet arthropathy, and osteophytes. Mild bilateral neuroforaminal narrowing. L1-2: Annular disc bulge, facet arthropathy, and osteophytes. Mild right and severe left neuroforaminal narrowing. L2-3: Annular disc bulge, facet arthropathy, and osteophytes. Left foraminal disc protrusion. Left L3 nerve root impingement. Moderate bilateral neuroforaminal narrowing. L3-4: Annular disc bulge and facet arthropathy. Moderate bilateral neuroforaminal narrowing. L4-5: Annular disc bulge and facet arthropathy. Left posterior lateral annular tear. Severe right and moderate left neuroforaminal narrowing. L5-S1: Annular disc bulge and facet arthropathy. Bilateral L5 pars defects. Grade 1 anterolisthesis of L5 on S1. Mild left neuroforaminal narrowing. IMPRESSION: Multilevel degenerative disc disease and spondylosis as above. Reviewed, Interpreted and Dictated by Edison Vargas III, MD Transcribed by Sary Starks Authenticated and [facility]
== END ==
PROVIDERS: PCP Internal Medicine Adolescent Medicine; Visit Provider Nurse Practitioner Family
DX: M54.50 Low back pain, unspecified (principal)
CPT/HCPCS: 72148; 76376

== ENCOUNTER → 2023-01-19 09:19 | Outpatient (POV) | payer BC, SELFPAY ==
[2023-01-19 09:31] VITALS: BP 115/55; PULSE 64; RESP 18; O2SAT 98; BMI 23.1
--- NOTE | 2023-01-19 09:37 | EXP.PAIN.SOA ---
[facility] Pain Management SOAP Note Subjective:: Patient is a pleasant 62-year-old male who presents today for follow-up of MRI. We are currently treating the patient for low back pain with lumbar radiculopathy symptoms, right leg pain, right hip pain. Today he rates his pain a 2 out of 10. Patient denies any new trauma or injury. He does state that he continues to have pain in his low back along the right side with radiating symptoms down his right leg. Patient does describe this as a constant aching sensation that is worse with increased activity. It does restrict his ability perform activities of daily living such as cooking or cleaning or doing things that he loves such as the gym. Patient has been experiencing this pain since May and continues to do at home exercising and stretching for longer than 12 weeks. Patient has tried jcjm-gwp-vqdkpyu medications such as Tylenol and ibuprofen along with heat and ice and topicals. He is also been to physical therapy for longer than 6 weeks with no additional relief. He is prescribed compounding cream. His Sloan is [phone]. Its been reviewed and appropriate. Review of Systems: General: No recent weight changes, no fever, no sleep disturbances Respiratory: No cough, no shortness of air, no recurring pulmonary infections Cardiovascular/peripheral vascular: No chest pain, no palpitations, no edema, no shortness of breath Gastrointestinal: No new onset incontinence, normal bowel movements reported Genitourinary: No new onset incontinence Musculoskeletal: Low back pain, right leg pain Psychiatric: [Normal mood/affect] Neurological: [Denies weakness in extremities], [denies balance issues] Objective:: Physical Exam: General: Alert and oriented x3, no acute distress, pleasant and cooperative Lungs: Respirations even and unlabored, symmetrical chest expansion Eyes: PERRL Musculoskeletal: Flexion and extension of lumbar [spine] somewhat guarded secondary to pain, [antalgic gait noted] positive right leg raise, decreased Achilles reflex with decreased sensation to light touch along the right leg Neurological: Speech clear, no gross sensory deficit Assessment:: Degenerative disc disease of lumbar spine with lumbar radiculopathy symptoms, lumbar facet arthropathy, lumbar spondylosis, lumbar spinal stenosis, L3 nerve root impingement, right hip pain, right leg pain Plan:: Patient is experiencing could continued pain in his low back along the right side with radiating symptoms into his right leg. Patient did have limited range of motion of his lumbar spine along with a positive right leg raise and decreased Achilles reflex with decreased sensation to light touch along the right leg during today's exam. I have discussed with the patient that he may benefit from a right transforaminal epidural steroid injection. Risk and benefits were explained to the patient and he would like to proceed forward with this plan of care. Patient is not on any blood thinners. Patient has tried and failed conservative therapy such as oral medication, heat and ice, topicals, physical therapy, at home exercising and stretching for longer than 12 weeks. His MRI imaging did show multilevel degenerative disc disease with lumbar facet arthropathy and spondylosis and severe right narrowing at his L4-L5 vertebra. I will also send him for referral to neurosurgery for possible evaluation for surgical intervention. Patient will be scheduled for a right transforaminal epidural steroid injection L4-L5 and L5-S1. Patient has been instructed to contact the clinic with any concerns before the next appointment. Dr. Stone has reviewed this note and agrees with this plan of care. This note was dictated using voice recognition software and make contain errors or omissions. [facility] Disclaimer: The information contained in this section may have been updated after the patient was seen, as this information can be updated by other users. Medical History ([place]
== END ==
PROVIDERS: PCP Internal Medicine Adolescent Medicine; Visit Provider Nurse Practitioner Family
DX: M79.604 Pain in right leg; M25.551 Pain in right hip; M51.16 Intervertebral disc disorders with radiculopathy, lumbar region; M47.26 Other spondylosis with radiculopathy, lumbar region; M48.061 Spinal stenosis, lumbar region without neurogenic claudication; G54.4 Lumbosacral root disorders, not elsewhere classified
CPT/HCPCS: 99212; G0463

== ENCOUNTER 2023-01-31 08:41 | Day surgery (SDC) | payer BC, SELFPAY ==
[2023-01-31 08:52] VITALS: BP 109/59; PULSE 61; RESP 18; TEMP 36.6; O2SAT 98; BMI 23.1
--- NOTE | 2023-01-31 09:13 | EXP.PAIN.PRO ---
Procedure Date: 01/31/23 Time: 09:15 Anesthesiologist:: Mario Rodas CRNA Complications:: None Pre-procedure Diagnosis:: Degenerative disc lumbar spine multilevels. Lumbar radiculopathy. Lumbar disc bulge L4-5, L5-S1. Post-procedure Diagnosis:: Same. Indications for Procedure:: Patient is a very pleasant 62-year-old male comes our clinic today for right L4-5, L5-S1 transforaminal epidural steroid injection. Patient states his pain is right posterior hip and down the right leg. He rates his pain 6/10. Procedure Details:: Details of the procedure were explained to the patient. The patient was taken the procedure room placed in the prone position. The area of the lumbar spine was cleansed using chlorhexidine as a cleansing solution. At this time using fluoroscopy guidance markers were placed on the right lateral border of the L4 and L5 vertebral body. The skin and subcutaneous tissue was anesthetized using 1% lidocaine and 25-gauge needle. At this time using a 22-gauge 3-1/2 inch spinal needle the right upper one third of the L4-5 foramen was accessed. The same was done at the right L5-S1 foramen. Needle positions were confirmed and a lateral view using fluoroscopy and contrast dye. At this time 1 cc of 1% lidocaine +20 mg of Depo-Medrol was injected at each level after negative aspiration. [place] were removed. Band-Aid applied. Patient tolerated the procedure without difficulty. There are no complications. Plan and Disposition:: Patient was discharged without incident.
[2023-01-31 09:15] VITALS: PULSE 64; RESP 18; O2SAT 98
[2023-01-31 09:17] VITALS: BP 114/41; PULSE 65; RESP 18; O2SAT 98
[2023-01-31 09:22] VITALS: BP 100/50; PULSE 53; RESP 18; O2SAT 98
== END 2023-01-31 09:22 | disposition home or self-care (01) ==
PROVIDERS: PCP Internal Medicine Adolescent Medicine; Visit Provider Nurse Anesthetist, Certified Registered
DX: M51.16 Intervertebral disc disorders with radiculopathy, lumbar region (principal)
CPT/HCPCS: 64483; 64484; J1030; Q9966

== ENCOUNTER → 2023-02-22 09:21 | Outpatient (POV) | payer BC, SELFPAY ==
[2023-02-22 09:43] VITALS: BP 120/70; PULSE 68; RESP 18; O2SAT 97; BMI 23.1
--- NOTE | 2023-02-22 09:57 | EXP.PAIN.SOA ---
[facility] Pain Management SOAP Note Subjective:: Patient is a pleasant 62-year-old male who presents today for follow-up of right transforaminal epidural steroid injection L4-L5 and L5-S1 on 01/31/2023. We are currently treating the patient for degenerative disc disease of lumbar spine with lumbar radiculopathy symptoms, right hip pain, right leg pain. Today he rates his pain a 6 out of 10. Patient denies any new trauma or injury. He denies any change to location or type of pain he experiences. Patient does state that he had at least 70% improvement following this injection however it only lasted approximately 3 days. Patient does state that he is back to his baseline and even feels that his pain has worsened. Patient does state the pain is an aching, throbbing sensation that is worse with increased activity. It does interfere with his ability perform activities of daily living such as cooking or cleaning. Patient does still continue to do exercise on a daily basis however it can be limited due to how bad his pain is at that time. Patient has tried qfvs-boe-xxizzbv medications along with heat and ice and topicals with minimal relief. Patient has also been to physical therapy for longer than 6 weeks with no additional improvement. He is prescribed compounding cream. He does state that he has heard from Dr. Londono's office and he has his first appointment they are on next for evaluation. His Sloan is [phone]. Its been reviewed and appropriate. Review of Systems: General: No recent weight changes, no fever, no sleep disturbances Respiratory: No cough, no shortness of air, no recurring pulmonary infections Cardiovascular/peripheral vascular: No chest pain, no palpitations, no edema, no shortness of breath Gastrointestinal: No new onset incontinence, normal bowel movements reported Genitourinary: No new onset incontinence Musculoskeletal: Low back pain, right leg pain Psychiatric: [Normal mood/affect] Neurological: [Denies weakness in extremities], [denies balance issues] Objective:: Physical Exam: General: Alert and oriented x3, no acute distress, pleasant and cooperative Lungs: Respirations even and unlabored, symmetrical chest expansion Eyes: PERRL Musculoskeletal: Flexion and extension of lumbar [spine] somewhat guarded secondary to pain, [antalgic gait noted] positive right leg raise with decreased sensation and decreased Achilles reflex and right leg Neurological: Speech clear, no gross sensory deficit Assessment:: Degenerative disc disease of lumbar spine with lumbar radiculopathy symptoms, right hip pain, right leg pain Plan:: Patient is experiencing worsening pain in his low back with radiating symptoms to his right leg. Patient had limited range of motion of his lumbar spine along with a positive right leg raise and decreased sensation and decreased reflexes along the right leg. I have discussed with the patient since he had 70% improvement with his first injection that it may be beneficial to repeat the transforaminal epidural. Risk and benefits were discussed with the patient and he would like to proceed forward with this plan of care. Patient is not on any blood thinners. We will schedule the patient for a right transforaminal epidural steroid injection L4-L5 and L5-S1. Patient has been instructed to contact the clinic with any concerns before the next appointment. Dr. Stone has reviewed this note and agrees with this plan of care. This note was dictated using voice recognition software and make contain errors or omissions. [facility] Disclaimer: The information contained in this section may have been updated after the patient was seen, as this information can be updated by other users. Medical History GERD (gastroesophageal reflux disease) Hiatal hernia Kidney stones Surgical History H/O colonoscopy H/O right knee
== END ==
PROVIDERS: PCP Internal Medicine Adolescent Medicine; Visit Provider Nurse Practitioner Family
DX: M51.16 Intervertebral disc disorders with radiculopathy, lumbar region (principal); M25.551 Pain in right hip; M79.604 Pain in right leg
CPT/HCPCS: 99212; G0463

== ENCOUNTER 2023-03-07 08:23 | Day surgery (SDC) | payer BC, SELFPAY ==
[2023-03-07 08:43] VITALS: BP 129/55; PULSE 74; PULSE 81; RESP 18; O2SAT 98
[2023-03-07 08:47] VITALS: BP 124/62; PULSE 65; RESP 18; TEMP 36.8; O2SAT 99; BMI 23.1
[2023-03-07 08:50] VITALS: BP 121/64; PULSE 68; RESP 16; O2SAT 99
--- NOTE | 2023-03-07 09:00 | P.PCN_ITS ---
Procedure Date: 03/07/23 Time: 08:45 Anesthesiologist:: Mario Rodas CRNA Complications:: None Pre-procedure Diagnosis:: Degenerative disc lumbar spine multilevels. Lumbar radiculopathy. Disc bulge L4-5, L5-S1. Post-procedure Diagnosis:: Same. Indications for Procedure:: Patient is a very pleasant 62-year-old male that comes our clinic today for right L4-5 and L5-S1 transforaminal epidural steroid injection. Patient reports 3 days of relief in terms of his overall low back pain and right hip and leg radicular symptoms with previous right L4-5 and L5-S1 transforaminal epidural steroid injection. However, pain and discomfort returned promptly after 3 days. He rates his pain today 7/10. Procedure Details:: Details of the procedure were explained to the patient. The patient was taken the procedure room placed in the prone position. The area of the lumbar spine was cleansed using chlorhexidine as a cleansing solution. At this time using fluoroscopy guidance markers were placed on the right lateral border of the L4 and L5 vertebral body. The skin and subcutaneous tissue was anesthetized using 1% lidocaine and 25-gauge needle. At this time using a 22-gauge 3-1/2 inch spinal needle the right upper one third of the L4-5 foramen was accessed. The same was done at the right L5-S1 foramen. Needle positions were confirmed and a lateral view using fluoroscopy and contrast dye. At this time 1 cc of 1% lidocaine +20 mg of Depo-Medrol was injected at each level after negative aspiration. [place] were removed. Band-Aid applied. Patient tolerated the procedure without difficulty. There are no complications. Plan and Disposition:: Patient was discharged without incident.
== END 2023-03-07 08:50 | disposition home or self-care (01) ==
PROVIDERS: PCP Internal Medicine Adolescent Medicine; Visit Provider Nurse Anesthetist, Certified Registered
DX: M51.16 Intervertebral disc disorders with radiculopathy, lumbar region (principal)
CPT/HCPCS: 64483; 64484; J1030

== ENCOUNTER → 2023-03-24 08:57 | Outpatient (POV) | payer BC, SELFPAY ==
[2023-03-24 09:23] VITALS: BP 119/53; PULSE 82; RESP 20; BMI 23.1
--- NOTE | 2023-03-24 09:42 | A.OFFVIS_ITS ---
[facility] Pain Management SOAP Note Subjective:: This patient is a very pleasant 62-year-old male that comes our clinic today for follow-up visit after receiving his second round of transforaminal epidural steroid injection at the L4-5 and L5-S1 level on the right. Patient reports minimal relief. Continues with low back pain on the right as well as right hip and leg radicular symptoms to the toe. Patient rates his pain 7/10. Patient has appointment to see neurosurgery Dr. Londono in 2 weeks for consultation. Patient taking ibuprofen and Tylenol as needed. I discussed in detail with the patient regarding treatment options if in fact no surgery is recommended. Such as different injection and/or spinal cord stimulator. Patient will give us a call at the clinic if in fact no surgery is indicated. Patient's Sloan #[id number] has been reviewed and appropriate. Objective:: Patient is awake alert [place] x3. In no acute distress. Flexion-extension lumbar spine somewhat guarded secondary to pain. Deep tendon reflexes upper lower extremities normal. Motor strength upper and lower extremities normal. There is no sensory deficit. Gait is normal. Assessment:: Degenerative disc lumbar spine multilevels. Lumbar radiculopathy. Plan:: Patient will return to see us if in fact no surgery is indicated from neurosurgery consultation. [facility] Disclaimer: The information contained in this section may have been updated after the patient was seen, as this information can be updated by other users. 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
== END ==
PROVIDERS: PCP Internal Medicine Adolescent Medicine; Visit Provider Nurse Anesthetist, Certified Registered
DX: M51.16 Intervertebral disc disorders with radiculopathy, lumbar region (principal)
CPT/HCPCS: 99212; G0463

== ENCOUNTER 2023-04-25 09:25 | Day surgery (SDC) | payer BC, SELFPAY ==
[2023-04-25 09:40] VITALS: BP 119/69; PULSE 66; RESP 16; TEMP 36.5; O2SAT 98; BMI 23.1
[2023-04-25 09:45] VITALS: BP 112/35; PULSE 71; RESP 18; O2SAT 98
--- NOTE | 2023-04-25 09:45 | P.PCN_ITS ---
Procedure Anesthesiologist:: Mario Rodas CRNA Complications:: None
--- NOTE | 2023-04-25 09:45 | EXP.PAIN.PRO ---
Procedure Anesthesiologist:: Mario Rodas CRNA Complications:: None
[2023-04-25 09:50] VITALS: BP 112/35; PULSE 70; RESP 18; O2SAT 98
[2023-04-25 09:52] VITALS: BP 124/64; PULSE 60; RESP 16; O2SAT 98
--- NOTE | 2023-04-25 09:52 | EXP.PAIN.PRO ---
Procedure Date: 04/25/23 Time: 09:40 Anesthesiologist:: Mario Rodas CRNA Complications:: None Pre-procedure Diagnosis:: Degenerative disc lumbar spine multilevels. Lumbar radiculopathy. Lumbar spondylosis. Multilevel lumbar facet arthropathy Post-procedure Diagnosis:: Same. Indications for Procedure:: Patient is a very pleasant 63-year-old male that comes our clinic today for a lumbar medial branch block bilaterally L4-5, L5-S1. Patient had 1 hour of significant improvement terms of his low back pain with his first round of injections at the same level. Patient describes low back pain is constant, dull, aching. Standing and or ambulating increases pain significantly. Patient has difficulty with flexion, extension, left and right rotation Procedure Details:: Informed consent was obtained and the risk and benefits of the procedure was explained to the patient. Patient was taken to the procedure room where noninvasive monitors were placed, including noninvasive blood pressure cuff as well as pulse oximeter. The area over the lumbar spine was cleansed using chlorhexidine as a cleansing solution. I anesthetized the skin and subcutaneous tissues with 1% Lidocaine. I placed 22-gauge spinal needles into the facet joint/ medial branches of [L3-L4, L4-L5, and L5-S1] bilaterally. Needle placement was confirmed with fluoroscopy. After confirmation of needle placement, each site was injected with 1 mL of 1% lidocaine and 0.25 % Marcaine and 10 mg of Depo-Medrol. A total of 80 mg of depo medrol was used for bilateral medial branch blocks of [L3-L4, L4-L5, and L5-S1] bilaterally. Patient tolerated the procedure without difficulty. There were no complications. Plan and Disposition:: Patient was discharged without incident.
== END 2023-04-25 09:52 | disposition home or self-care (01) ==
PROVIDERS: PCP Internal Medicine Adolescent Medicine; Visit Provider Nurse Anesthetist, Certified Registered
DX: M47.896 Other spondylosis, lumbar region (principal); M51.16 Intervertebral disc disorders with radiculopathy, lumbar region
CPT/HCPCS: 64493; 64494; J1040

== ENCOUNTER → 2023-05-15 09:38 | Outpatient (POV) | payer BC, SELFPAY ==
--- NOTE | 2023-05-15 09:45 | EXP.PAIN.SOA ---
[facility] Pain Management SOAP Note Subjective:: Patient is a pleasant 62-year-old male who presents today for follow-up of lumbar medial branch block bilaterally L4-L5 and L5-S1 on 04/25/2023. We are currently treating the patient for degenerative disc disease of lumbar spine with lumbar radiculopathy symptoms, right hip pain, right leg pain, lumbar spondylosis, lumbar facet arthropathy. Today he rates his pain a 7 out of 10. Patient denies any new trauma or injury. He states that he had approximately 50% improvement following this injection however only lasting 1 day. He does state that he went and saw Dr. Londono who was recommending he try the lumbar RFA. At that time he was not stating he would benefit from surgical intervention or recommending it. Patient does state the pain is an aching, throbbing sensation that is worse with increased activity. It does interfere with his ability perform activities of daily living such as cooking or cleaning. Patient is very active and has a daily home exercise program and does go to the gym. Patient has tried [id number] medications along with heat and ice and topicals with minimal relief. Patient has also been to physical therapy for longer than 6 weeks with no additional improvement. He is prescribed compounding cream. His Sloan has been reviewed and appropriate. Review of Systems: General: No recent weight changes, no fever, no sleep disturbances Respiratory: No cough, no shortness of air, no recurring pulmonary infections Cardiovascular/peripheral vascular: No chest pain, no palpitations, no edema, no shortness of breath Gastrointestinal: No new onset incontinence, normal bowel movements reported Genitourinary: No new onset incontinence Musculoskeletal: Low back pain, right leg pain Psychiatric: [Normal mood/affect] Neurological: [Denies weakness in extremities], [denies balance issues] Objective:: Physical Exam: General: Alert and oriented x3, no acute distress, pleasant and cooperative Lungs: Respirations even and unlabored, symmetrical chest expansion Eyes: PERRL Musculoskeletal: Flexion and extension of lumbar [spine] somewhat guarded secondary to pain, [antalgic gait noted] positive Kemps test Neurological: Speech clear, no gross sensory deficit Assessment:: Degenerative disc disease of lumbar spine with lumbar radiculopathy symptoms, right hip pain, right leg pain, lumbar spondylosis, lumbar facet arthropathy Plan:: ' Patient continues to have significant pain in his low back with limited range of motion. Patient had a positive Kemps test during today's visit. Patient's first diagnostic lumbar medial branch block did provide 50% improvement however only short-term. I have discussed with the patient that he may benefit from repeat lumbar medial branch block. Risk and benefits were discussed with the patient and he would like to proceed forward with this plan of care. I have also counseled the patient if he has another successful diagnostic block we will plan on proceeding forward with the lumbar RFA at a later date. Patient has tried and failed conservative therapy such as oral medications, heat and ice, topicals, physical therapy, at home stretching and exercise for longer than 12 weeks. Patient will be scheduled for his second diagnostic lumbar medial branch block bilaterally L4-L5 and L5-S1. Patient has been instructed to contact the clinic with any concerns before the next appointment. Dr. Stone has reviewed this note and agrees with this plan of care. This note was dictated using voice recognition software and make contain errors or omissions. [facility] Disclaimer: The information contained in this section may have been updated after the patient was seen, as this information can be updated by other users. Medical History GERD (gastroesophageal reflux disease) Hiatal hernia Kidney stones Surgical History (Reviewed 04/25/23 @ 09:46
[2023-05-15 09:51] VITALS: BP 132/64; PULSE 70; RESP 18; O2SAT 97; BMI 23.1
== END ==
PROVIDERS: PCP Internal Medicine Adolescent Medicine; Visit Provider Nurse Practitioner Family
DX: M51.16 Intervertebral disc disorders with radiculopathy, lumbar region (principal); M25.551 Pain in right hip; M79.604 Pain in right leg; M47.26 Other spondylosis with radiculopathy, lumbar region
CPT/HCPCS: 99212; G0463

== ENCOUNTER 2023-05-30 07:52 | Day surgery (SDC) | payer BC, SELFPAY ==
[2023-05-30 08:12] VITALS: BP 133/86; PULSE 66; TEMP 36.4; O2SAT 98; BMI 23.0
[2023-05-30 08:35] VITALS: BP 128/45; PULSE 66; RESP 18; O2SAT 97
[2023-05-30 08:36] VITALS: BP 128/45; PULSE 90; RESP 18; O2SAT 98
--- NOTE | 2023-05-30 08:40 | P.PCN_ITS ---
Procedure Date: 05/30/23 Time: 08:20 Anesthesiologist:: Mario Rodas CRNA Complications:: None Pre-procedure Diagnosis:: Degenerative disc disease lumbar spine multilevels. Lumbar radiculopathy. Lumbar spondylosis. Multilevel lumbar facet arthropathy. Post-procedure Diagnosis:: Same. Indications for Procedure:: Patient is a pleasant 62-year-old male comes our clinic today for repeat L4-5, L5-S1 bilateral medial branch blocks/facet injections. He reports 1 to 2 hours of complete relief in terms of his low back pain as well as bilateral hip radicular symptoms after his first round of injections at the same levels. He rates pain today 7/10. Procedure Details:: Informed consent was obtained and the risk and benefits of the procedure was explained to the patient. Patient was taken to the procedure room where noninvasive monitors were placed, including noninvasive blood pressure cuff as well as pulse oximeter. The area over the lumbar spine was cleansed using chlorhexidine as a cleansing solution. I anesthetized the skin and subcutaneous tissues with 1% Lidocaine. I placed 22-gauge spinal needles into the facet joint/ medial branches of L4-L5, and L5-S1] bilaterally. Needle placement was confirmed with fluoroscopy. After confirmation of needle placement, each site was injected with 1 mL of 1% lidocaine and 0.25 % Marcaine and 10 mg of Depo- Medrol. A total of 80 mg of depo medrol was used for bilateral medial branch blo cks of L4-L5, and L5-S1] bilaterally. Patient tolerated the procedure without difficulty. There were no complications. Plan and Disposition:: Patient was discharged without incident.
[2023-05-30 08:41] VITALS: BP 121/65; PULSE 62; O2SAT 98
== END 2023-05-30 08:40 | disposition home or self-care (01) ==
PROVIDERS: PCP Internal Medicine Adolescent Medicine; Visit Provider Nurse Anesthetist, Certified Registered
DX: M47.896 Other spondylosis, lumbar region (principal); M51.16 Intervertebral disc disorders with radiculopathy, lumbar region
CPT/HCPCS: 64493; 64494; J1040

== ENCOUNTER → 2023-06-16 08:31 | Outpatient (POV) | payer BC, SELFPAY ==
[2023-06-16 08:48] VITALS: RESP 18; O2SAT 98; BMI 22.4
--- NOTE | 2023-06-16 08:50 | A.OFFVIS_ITS ---
[facility] Pain Management SOAP Note Subjective:: Patient is a pleasant 63-year-old male who presents today for follow-up of his second diagnostic lumbar medial branch block bilaterally L4-L5 and L5-S1 on 05/30/2023. We are currently treating the patient for degenerative disc disease of lumbar spine with lumbar radiculopathy symptoms, right hip pain, right leg pain, lumbar spondylosis, lumbar facet arthropathy. Today he rates his pain an 8 out of 10. Patient denies any new trauma or injury. He does state that he had approximately 50% improvement lasting 1 hour following this procedure. Patient states he was able to move around easier during that timeframe with less pain. Patient does state he is back to his baseline today and describes it as a fairly constant aching, throbbing sensation that does interfere with his ability perform activities of daily living such as cooking and cleaning. Patient does state the pain is worse with certain movements such as bending, twisting. Patient does go to the gym on a regular basis and states that he would like to continue to stay active and stay in shape however this has put a strain on doing this. Patient had previously saw Dr. Londono in [place] who was recommending a lumbar RFA. Patient does state he is still interested in proceeding forward with this option however he has made an appointment with a spinal specialist out of [place] coming up in the next week or 2. Patient states that he would like to go to this appointment before deciding to proceed forward with the a blation. Patient has tried and failed conservative therapy such as oral medication, heat and ice, topicals, physical therapy, at home stretching exercise for longer than 6 weeks. Patient has been prescribed compounded cream with minimal relief. Patient is requesting if we can do something for pain for a short-term basis. His Sloan has been reviewed and is appropriate. Review of Systems: General: No recent weight changes, no fever, no sleep disturbances Respiratory: No cough, no shortness of air, no recurring pulmonary infections Cardiovascular/peripheral vascular: No chest pain, no palpitations, no edema, no shortness of breath Gastrointestinal: No new onset incontinence, normal bowel movements reported Genitourinary: No new onset incontinence Musculoskeletal: Low back pain Psychiatric: [Normal mood/affect] Neurological: [Denies weakness in extremities], [denies balance issues] Objective:: Physical Exam: General: Alert and oriented x3, no acute distress, pleasant and cooperative Lungs: Respirations even and unlabored, symmetrical chest expansion Eyes: PERRL Musculoskeletal: Flexion and extension of lumbar [spine] somewhat guarded secondary to pain, [antalgic gait noted] positive Kemps test Neurological: Speech clear, no gross sensory deficit Assessment:: Degenerative disc disease of lumbar spine with lumbar radiculopathy symptoms, right hip pain, right leg pain, lumbar spondylosis, lumbar facet arthropathy Plan:: Patient continues to have chronic low back pain with limited range of motion of his lumbar spine. Patient did have a positive Kemps test during today's exam. I have discussed with the patient the risk and benefits of the lumbar RFA procedure. Patient is very interested in proceeding forward with this option however would like to make this appointment after speaking with the spinal specialist out of [place]. I have discussed with the patient that he can call and schedule this procedure over the phone. I will send in a temporary prescription of [place] 5 mg twice daily with a 14-day supply. Patient has been advised of risks of oversedation with the prescribed medication. Narcan has been offered to the patient in the event of oversedation. Patient has been advised that a family member should also be educated regarding administration of Narcan. Patient has been instructed to contact the clinic with any concerns before the next appointment. Dr. Stone has reviewed this note and agrees with this plan of care. This note was dictated using voice recognition software and make contain errors or omissions. [facility] Disclaimer: The information contained in this section may have been updated after the patient was seen, as this information can be updated by other users. 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
== END | disposition home or self-care (01) ==
PROVIDERS: PCP Internal Medicine Adolescent Medicine; Visit Provider Nurse Practitioner Family
DX: M51.16 Intervertebral disc disorders with radiculopathy, lumbar region (principal); M47.26 Other spondylosis with radiculopathy, lumbar region; M25.551 Pain in right hip; M79.604 Pain in right leg
CPT/HCPCS: 99212; G0463

== ENCOUNTER 2023-08-01 11:17 | Outpatient (CLI) | payer BC, SELFPAY ==
[2023-08-01 12:00] LABS: Platelet Count 143 K/mm3 (142-424)
[2023-08-01 12:06] LABS: Basophils % 0.4 % (0.1-2.0); Eosinophils # 0.3 K/mm3 (0.0-0.4); Eosinophils % 4.2 % (0.1-12.0); Hemoglobin 15.9 g/dL (14.1-18.0); Lymphocytes # 1.5 K/mm3 (0.7-4.5); Lymphocytes % 21.3 % (10-50); Mean Corpuscular HGB Conc 33.9 g/dL (31.8-35.4); Mean Corpuscular Hemoglobin 33.7 pg (27.0-31.2); Mean Corpuscular Volume 99.4 fl (80-94); Mean Platelet Volume 8.7 fl (7.4-10.4); Monocytes # 0.7 K/mm3 (0.1-1.0); Monocytes % 9.8 % (1.7-9.3); Neutrophils # 4.5 K/mm3 (1.8-7.8); Neutrophils % 64.3 % (37.0-80.0); Platelet Count 180 K/mm3 (142-424); Red Blood Count 4.73 M/mm3 (4.60-6.20)
[2023-08-01 12:38] LABS: Chloride 105 mmol/L (98-107); Potassium 4.4 mmoL/L (3.5-5.1); Sodium 137 mmol/L (136-145)
[2023-08-01 12:41] LABS: Alanine Aminotransferase 22 U/L (12-78); Albumin Level 3.9 g/dl (3.5-5.0); Albumin/Globulin Ratio 1.6 (1.1-1.8); Alkaline Phosphatase 91 U/L (38-126); Anion Gap 3.4 mEq/L (5-15); Aspartate Amino Transferase 33 U/L (17-59); Bilirubin,Total 2.1 mg/dl (0.2-1.3); Blood Urea Nitrogen 16 mg/dl (9-20); Calcium 8.9 mg/dl (8.4-10.2); Carbon Dioxide 33 mmol/L (22.0-30.0); Estimated Glomerular Filt Rate 61 ml/min (>60); GFR (African American) 74 ML/MIN (>60); Globulin 2.4 g/dL (1.3-3.2); Glucose 91 mg/dl (74-100); Total Protein,Serum 6.3 g/dl (6.3-8.2)
[2023-08-03 11:43] LABS: Peripheral Smear Review Scanned Result
== END 2023-08-01 23:59 ==
LOC: LAB 11:18
PROVIDERS: PCP Internal Medicine Adolescent Medicine; Visit Provider Internal Medicine Medical Oncology
DX: D69.8 Other specified hemorrhagic conditions (principal)
CPT/HCPCS: 36415; 80053; 85025; 85049

== ENCOUNTER 2023-09-04 13:25 | Outpatient (CLI) | payer BC, SELFPAY ==
[2023-09-04 13:37] LABS: Microscopic, Urine URINE MICROSCOPIC (MICROSCOPIC)
[2023-09-04 13:46] LABS: Appearance,Urine CLEAR (Clear); Blood, Urine TRACE-I (Negative); Color,Urine YELLOW (Yellow); Glucose,Urine (UA) Negative (Negative); Ketones,Urine Negative (Negative); Leukocyte Esterase,Urine Negative (Negative); Nitrate,Urine Negative (Negative); PH,Urine 6.5 (5.0-8.5); Protein,Urine Negative (Negative); Specific Gravity, Urine 1.015 (1.005-1.030); Urobilinogen,Urine 0.2 EU/dl (0.2)
[2023-09-04 14:05] LABS: Bilirubin,Urine 1+ (Negative)
[2023-09-04 14:37] LABS: RBC,Urine Occasional #/hpf (0-3); Squamous Epithelial Cell,Urine Occasional #/hpf (0-5)
[2023-09-04 14:57] LABS: Prostate Specific Ag Screen 0.9 ng/ml (0.0-4.0)
== END 2023-09-04 23:59 ==
LOC: LAB 13:26
PROVIDERS: PCP Internal Medicine Adolescent Medicine; Visit Provider Urology
DX: N40.0 Benign prostatic hyperplasia without lower urinary tract symptoms (principal); Z12.5 Encounter for screening for malignant neoplasm of prostate
CPT/HCPCS: 36415; 81001; G0103

== ENCOUNTER 2023-11-07 08:30 | Day surgery (SDC) | payer BC, SELFPAY ==
--- NOTE | 2023-11-02 10:35 | SUR.PREOP ---
1034: Left message to call us back for preop call.
[2023-11-02 11:06] VITALS: BMI 23.1
[2023-11-07 08:43] VITALS: BP 127/65; PULSE 54; RESP 18; TEMP 36.4; O2SAT 98
[2023-11-07] MEDS: LACTATED RINGERS 1000ML 1,000 ML 25 ML IV (08:50)
--- NOTE | 2023-11-07 08:56 | EXP.ANES.CKL ---
[facility] Disclaimer: The information contained in this section may have been updated after the patient was seen, as this information can be updated by other users. 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 current occupational exposures/hazards: No caffeine: Yes [facility] Anesthesia Checklist Patient Identification Patient Identification: Verbal (Name & ) Structural Data Admitted From: Home Planned Operative Procedure/s: egd Additional verifications Anesthesia Reactions: No Hx Blood Transfusions: No Blood Transfusion Reaction: No Airway Assessment Mallampati Score:: Class I C-Spine Mobility Assessed: Yes TMJ Mobility Assessed: Yes Dentition: Good Dentition Neurological Assessment Level of Consciousness: Awake, Alert and Appropriate Anesthesia Plan Anesthesia Risk discussed: Yes Anesthesia Plan: Verified ASA Class: I Anesthesia Type: MAC
--- NOTE | 2023-11-07 09:18 | HMH.SCOPE ---
Procedure: Date: 11/07/23 Patient Date of :: 1960 Procedure Performed:: Esophagogastroduodenoscopy with biopsy Indications:: Gastroesophageal reflux Dysphagia Performing Provider:: Zac Hopper MD Referring Provider:: . Sedation:: Monitored anesthesia care Procedure:: After informed consent was obtained the patient was taken to the endoscopy suite. Sedation ensued after the patient was transferred to the left lateral decubitus position. Pulse, blood pressure, and oxygen saturation were monitored throughout the procedure. The endoscope was advanced beyond the duodenal bulb. Retroflexion within the gastric lumen was accomplished. The gastroscope was carefully removed and the patient was transferred to recovery in stable condition. Please see findings and specimens below for detail. Findings:: Patulous esophagus with mild tortuosity No definitive stricture Gastroesophageal junction at 42 cm Sliding hiatal hernia Minimal gastritis Specimens:: Antral biopsy Recommendations:: Follow-up pathology Note: Patient is now due for colonoscopy. He is aware and states he will schedule one soon . Complications:: No immediate Estimated blood obtained (mL): 1 Colonoscopy Component Colonoscopy Component Was a colonoscopy performed during today's procedure?: No
[2023-11-07 09:24] VITALS: O2SAT 98
[2023-11-07 09:42] VITALS: BP 93/54; PULSE 50; RESP 18; TEMP 37.1; O2SAT 95
[2023-11-07 09:52] VITALS: BP 89/50; PULSE 49; RESP 18; O2SAT 95
[2023-11-07 10:02] VITALS: BP 108/50; PULSE 53; RESP 18; O2SAT 96
[2023-11-07 10:12] VITALS: BP 96/48; PULSE 54; RESP 18; O2SAT 95
== END 2023-11-07 10:12 | disposition home or self-care (01) ==
PROVIDERS: PCP Internal Medicine Adolescent Medicine; Visit Provider Surgery
PROC: 0DJ08ZZ Inspection of Upper Intestinal Tract, Via Natural or Artificial Opening Endoscopic (ICD-10-PCS; CPT 43235; principal; 2023-11-07 09:30)
DX: K21.9 Gastro-esophageal reflux disease without esophagitis (principal); R13.10 Dysphagia, unspecified; K22.89 Other specified disease of esophagus; K44.9 Diaphragmatic hernia without obstruction or gangrene; K29.50 Unspecified chronic gastritis without bleeding
CPT/HCPCS: 43239; J7120

== ENCOUNTER 2023-11-24 07:45 | Outpatient (CLI) | payer BC, SELFPAY ==
--- NOTE | 2023-11-24 07:46 | FL_ITS ---
FINAL REPORT CLINICAL HISTORY: dysphagia 731.08 dap 1.33 fluoro time FINDINGS: ESOPHAGRAM HISTORY: Dysphagia. PROCEDURE: The patient ingested barium. Effervescent crystals were also administered. Spot and overhead films were obtained. Number of images: 23 Fluoro time: 1 minute 33 seconds DAP: 731.08 uGym2. FINDINGS: No esophageal stricture is identified. A 13 mm barium tablet passes of the esophagus and into the stomach without delay. There is irregular mucosa of the distal esophagus. There is a small sliding-type hiatal hernia. There is no gastroesophageal reflux. Peristalsis is normal. IMPRESSION: Irregular mucosa of the distal esophagus which may reflect nonspecific esophagitis. Small sliding type hiatal hernia. Consider EGD. Films reviewed , interpreted and dictated by Dr. Vargas. Transcribed by Spencer Cheema PA-C. Reviewed, Interpreted and Dictated by Edison Vargas III, MD Transcribed by MARCIAL Lopez Authenticated and [facility]
[2023-11-24] MEDS: BARIUM SULFATE (E-Z-HD 340GM);135ML BOTTLE 135 ML PO (08:24)
[2023-11-24] MEDS: E-Z-GASII EFFERVESCENT GRANULES;1PK 1 EACH PO (08:24)
[2023-11-24] MEDS: BARIUM SULFATE(E-Z-AC);750ML BOTTLE 750 ML PO (08:24)
== END 2023-11-24 23:59 | disposition home or self-care (01) ==
LOC: RAD 07:46
PROVIDERS: PCP Internal Medicine Adolescent Medicine; Visit Provider Surgery
DX: R13.14 Dysphagia, pharyngoesophageal phase (principal)
CPT/HCPCS: 74220

== ENCOUNTER 2024-06-18 08:41 | Day surgery (SDC) | payer BC, SELFPAY ==
[2024-06-17 09:14] VITALS: BMI 23.1
[2024-06-18] VITALS (7 sets, daily range): BP systolic 96–131; BP diastolic 60–79; PULSE 51–74; RESP 16–18; TEMP 36.1–36.6; O2SAT 94–100
--- NOTE | 2024-06-18 09:07 | P.PNANES_ITS ---
[facility] Disclaimer: The information contained in this section may have been updated after the patient was seen, as this information can be updated by other users. 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 current occupational exposures/hazards: No caffeine: Yes Have you lived/traveled outside US in past 30 days?: No Contact w/someone who lives/traveled outside US past 30 days?: No Exposure to someone with infectious disease in past 14 days?: No Do you have a fever (greater than 100.4 F or 38 C)?: No Have you tested positive for COVID-19: No Exposed to someone with COVID-19 in past 14 days?: No Do you have a sore throat?: No Do you have a cough?: No Do you have any weakness?: No Do you have any diarrhea?: No Are you experiencing any unusual bleeding?: No Do you have any muscle aches/pain?: No Do you have any abdominal pain?: No Are you experiencing loss of taste or smell?: No [facility] Anesthesia Checklist Patient Identification Patient Identification: Arm Band Structural Data Admitted From: Home Planned Operative Procedure/s: EGD/Colonoscopy Consent for Planned Operative Procedure(s) Verified: Yes Verified Documents: Surgical Consent NPO Status Verified Time NPO: 00:00 Additional verifications Anesthesia Reactions: No Hx Blood Transfusions: No Blood Transfusion Reaction: No Airway Assessment Mallampati Score:: Class II C-Spine Mobility Assessed: Yes TMJ Mobility Assessed: Yes Dentition: Good Dentition Neurological Assessment Level of Consciousness: Awake Hx Seizures: No Numbness or tingling in extremities: No Anesthesia Plan Anesthesia Risk discussed: Yes Anesthesia Plan: Verified ASA Class: II Anesthesia Type: MAC
--- NOTE | 2024-06-18 09:08 | HMH.SCOPE ---
Procedure: Date: 06/18/24 Patient Date of :: 1960 Procedure Performed:: Esophagogastroduodenoscopy with biopsy Colonoscopy Indications:: Dysphagia History of colon polyps Note (forwarded from office visit dated 04/24/2024): The patient returns for additional follow-up regarding dysphagia. He is no longer taking proton pump inhibition and states that he is doing pretty well overall . He rarely notices difficulty swallowing but only with large pieces of food . He states that the symptoms are very rare . He also notes that he is due for colonoscopy . The patient has a history of large complex colonic polyps including a serrated adenoma in the periappendiceal region. His most recent colonoscopy was in July 2021 at which time his bowel preparation was moderate and fairly severe lack of relaxation/spasticity was also noted. His tattoo site (periappendiceal region and ileocecal valve region) appeared normal. A small benign polyp at 70 cm was excised. A 2-3-year repeat was recommended. Performing Provider:: Zac Hopper MD Referring Provider:: . Sedation:: Monitored anesthesia care Procedure:: After informed consent was obtained the patient was taken to the endoscopy suite. Sedation ensued after the patient was transferred to the left lateral decubitus position. Pulse, blood pressure, and oxygen saturation were monitored throughout the procedure. The endoscope was advanced beyond the duodenal bulb. Retroflexion within the gastric lumen was accomplished. The gastroscope was carefully removed. Digital rectal exam revealed no significant abnormality. The colonoscope was placed in position. The entire colon was evaluated. The colonoscope was carefully removed and the patient was transferred to recovery in stable condition. Please see findings and specimens below for detail. BAL Findings:: Unchanged sliding hiatal hernia Duodenal diverticulum Bowel preparation moderate Moderate lack of relaxation/spasticity Periappendiceal tattoo site appeared normal Specimens:: Antral biopsy Recommendations:: Follow-up pathology Likely repeat colonoscopy in 3 years secondary to history of complex polyps, persistent moderate bowel preparation, and spasticity/lack of relaxation. Complications:: No immediate Estimated blood obtained (mL): 1 Colonoscopy Component Colonoscopy Component Was a colonoscopy performed during today's procedure?: Yes Recommended follow up colonoscopy of at least 10 years?: No If no, follow up colonoscopy recommended in ___ years?: (See above) Reason for not recommending >/= 10 yr follow-up interval?: (See above)
[2024-06-18] MEDS: LACTATED RINGERS 1000ML 1,000 ML 25 ML IV (09:09)
== END 2024-06-18 11:00 | disposition home or self-care (01) ==
PROVIDERS: PCP Internal Medicine Adolescent Medicine; Visit Provider Surgery
PROC: 0DJ08ZZ Inspection of Upper Intestinal Tract, Via Natural or Artificial Opening Endoscopic (ICD-10-PCS; CPT 45378; principal; 2024-06-18 10:15)
DX: R13.10 Dysphagia, unspecified (principal); Z86.0100 Personal history of colon polyps, unspecified; K44.9 Diaphragmatic hernia without obstruction or gangrene; K57.10 Diverticulosis of small intestine without perforation or abscess without bleeding
CPT/HCPCS: 43239; 45378; J2704; J7120

== ENCOUNTER 2024-08-19 14:55 | Outpatient (CLI) | payer BC, SELFPAY ==
--- NOTE | 2024-08-19 14:57 | US_ITS ---
FINAL REPORT TECHNIQUE: Real-time grayscale and color ultrasound of the thyroid was performed. CLINICAL HISTORY: ABNORMAL THYROID FUNCTION COMPARISON: None FINDINGS: The thyroid gland measures 50 x 22 x 26 mm on the right and 40 x 18 x 16 mm on the left. The isthmus measures 4 mm. There is increased vascularity throughout the thyroid gland.. Nodules: No significant nodules identified. IMPRESSION: TR 1 thyroid. No follow-up required per TI-RADS criteria. Reviewed, Interpreted and Dictated by Bhavin Prado MD Transcribed by Sary Starks Authenticated and . [facility]
== END 2024-08-19 23:59 | disposition home or self-care (01) ==
LOC: RAD 14:56
PROVIDERS: PCP Nurse Practitioner Family; Visit Provider Nurse Practitioner Family
DX: R94.6 Abnormal results of thyroid function studies (principal)
CPT/HCPCS: 76536

== ENCOUNTER 2024-12-02 11:54 | Outpatient (CLI) | payer BC, SELFPAY ==
--- OUTSIDE RECORDS SUMMARY | 2024-12-02 12:26 | XMS_ITS | Clinical Summary ---
Author Organization [facility] Address [address] [place] [address] Care Team Providers Care Hog Buyer Name Role Phone Simone Lozano MD Primary Care Provider [phone] Social History Tobacco Use Types Packs/Day Years Used Date Smoking Tobacco: Never Assessed Sex and Gender Information Value Date Recorded Sex Assigned at Not on file Legal Sex Male 7:35 PM EDT Gender Identity Not on file Sexual Orientation Not on file Last Filed Vital Signs Vital Sign Reading Time Taken Comments Blood Pressure - - Pulse - - Temperature - - Respiratory Rate - - Oxygen Saturation - - Inhaled Oxygen Concentration - - Weight 82 kg (180 lb 12.4 oz) 10/17/2023 2:19 PM EDT Height - - Body Mass Index - - Plan of Treatment Health Maintenance Due Date Last Done Comments [facility]-Depression Screening 1960 [facility]-HIV Screening 1960 [facility]-Hepatitis C Screening 1960 [facility]-/Child/Adol SDOH Screenings 1960 [facility]- SDOH Screenings 1979 [facility]-Adult SDOH Screenings 1979 [facility]-DTaP,Tdap,and Td Vaccine s (1 - Tdap) 08/15/1996 08/14/1996 CT Colonography 2006 Colonoscopy 2006 FIT-DNA 2006 FIT 2006 FOBT 2006 Sigmoidoscopy 2006 [facility]-Colorectal Cancer Screening 2006 [facility]-Pneumococcal Vaccine: 50 + Years (1 of 1 - PCV) 2011 [facility]-Zoster Vaccines (1 of 2) 2011 [id number] Vaccine ( season) 2024 06/22/2021, 11/20/2020, 10/29/2020 [facility]-Influenza Vaccine ([place]as[place] n Ended) 2025 04/12/2017 [facility]-RSV Vaccine: 60+ Years o r (1 - 1-dose 75+ series) 2036 HPV Vaccines Aged Out No longer eligi ble based on patient's age to complete this topic [facility]-HIB Vaccines Aged Out No longer e ligible based on patient's age to complete this topic [facility]-Hepatitis A Vaccines Aged Out No longer eligible based on patient's age to complete this topic [facility]-IPV Vaccines Aged Out No longer e ligible based on patient's age to complete this topic [facility]-Rotavirus Vaccines Aged Out No lo nger eligible based on patient's age to complete this topic Insurance [employer] Care Teams Hog Buyer Relationship Specialty Start Date End Date Simone Lozano MD [address] [place] [id number] PCP - General Internal Medicine 10/17/23
--- OUTSIDE RECORDS SUMMARY | 2024-12-02 12:26 | XMS_ITS | Data Portability ---
Author Organization ADILENE Karl herrera, CKS [facility] CLOSED Address [address] [place] [address] Care Team Providers Care Lining Stitcher Name Role Phone PRECIOUS MONTEZ Primary Care Provider LAUREANO BENITO Surgical Physician Assistant Unavailable Assessment Encounter Date Assessment Date Assessment LastModified by Organization Details LastModified Time 04/06/2023 04/06/2023 Mr. Casper is a 63-year-old gentleman with an L5-S1 spondylolisthesis and evidence of a pars fracture. This does create foraminal stenosis, but he also has significant foraminal stenosis at the L4-5 level. Addressing this would likely be a two-level lumbar fusion. This is complicated by significant levoscoliosis of the lumbar spine. I am concerned that if the L5-S1 foraminal stenosis was the main issue he would have pain and more of a dermatomal distribution down the L5 nerve root. He also failed to respond to transforaminal injections performed on the right at L4-5 and L5-S1, somewhat surprisingly. I would like Dr. Stone to trial facet blocks on the right at L4-5/L5-S1. Additionally, I will get some standing lumbar x-rays, with hip series. EMG and nerve conduction studies of the lower extremities will also be ordered. I will try to see him back in 3 to 4 weeks to come up with a treatment plan. He finds this extremely bothersome and limiting his daily activities. Not available 04/06/2023 10:11:55 04/26/2023 04/26/2023 NCS/EMG RESULTS: 1. Abnormal study 2. EDX evidence of a chronic right-sided L4/5 radiculopathy with subtle signs of ongoing denervation and reinnervation. 3. No EDX evidence of a peripheral neuropathy or an L2-3, S1 radiculopathy on the right. [email or web address] Not available 04/26/2023 11:48:12 05/01/2023 05/01/2023 Mr. Casper is a 63-year-old gentleman with degenerative issues at L4-5 and L5-S1. His standing flexion/extension lumbar x-rays do not show slippage at L5-S1, but he still may need a fusion at the segments to address his neural foraminal stenosis. His hip x-rays show only mild degenerative changes. I would like him to visit with Dr. Stone again, and discuss a radiofrequency ablation. I am hopeful this would be an option for him given that he got a few days relief from the injections. We discussed other ways of managing his pain conservatively. We are both on the same page, that a two-level lumbar fusion, is a last resort. He will call us if he has any further questions or concerns. He is welcome to drop off his MRI of his lumbar spine so we can loaded into the [facility] PACS system. Not available 05/01/2023 10:26:17 Plan of Treatment Reminders Order Date Submit Date Provider Last Modified By Organization Details Last Modified Time Details Appointments None record ed. Lab None record ed. Referral None record ed. Procedures None record ed. Surgeries None record ed. Imaging None record ed. Medication Orders None record ed. Patient TargetsNo targets recorded. Patient Instructions Encounter Date Encounter Id Patient Instructions Last Modified By Organization Details Last Modified Time 03/23/2021 [id number] right knee. date of Injury: 11/10/2020 Post OP: 01/29/2021 Patient is currently in Physical Therapy in [place] Patient stated that he is still having issues with stairs / squatting / at end of day patient stated that he has feels puffiness under Knee cap Exam: Right Knee: Post Op PROCEDURES: 1. Right knee arthroscopy, medial meniscectomy, bucket-handle meniscus tear, complex tear. 2. Right knee chondroplasty, trochlear groove, medial femoral condyle. Effusion Yes Palpation: medial joint line Right Yes Right Knee ROM: 3 - 120 Plan: Continue Physical Therapy in [place] Work Status: Modified Duty: No Climbing / No Squatting / 30 pounds Lift / carry / push / pull 1 hour up / 1 hour sitting / ok to drive RC: 5 weeks [email or web address] Not available 03/23/2021 10:55:39 05/04/2021 [id number] right knee. Date of Injury: 11/10/2020 Post OP: 01/29/2021 patient has completed Physical therapy Patient stated that his right knee is feeling good Exam: Right Knee: Post OP PROCEDURES: 1. Right knee arthroscopy, medial meniscectomy, bucket-handle meniscus tear, complex tear. 2. Right knee chondroplasty, trochlear groove, medial femoral condyle. Palpation: medial joint line Right No lateral joint line Right No pes bursa Right No plica Right No medial hamstring Right No lateral hamstring Right No Right Knee ROM: 0 - 130 Meniscus: Ryan's Medial Negative Ryan's Lateral Negative Plan: Patient is at MMI today: 1%WP / 2%LE Based on the [employer] Guides to the Evaluation of Permanent Restrictions Fifth Edition any further information needed see attached sheet Work Status: Regular Duty RC: PRN Not available 05/04/2021 12:01:55 Reason for Referral None Reported. Results Created Date Observation Date Name Description Value Unit Range Abnormal Flag Note LastModifiedBy Organization Detail LastModifiedTime 04/06/2004/06/2023 XR, lumbo sacra l spine , 2 or 3 view, bendi ng only [address] [address] Patiberonica luo Name: NELSON luo : [address]61 Abdirahman luo Orderi ng Provid er: OCHOA VEGA EXAM DATE: 2022 EXAM: XR LUMBAR SPINE FLEX/E XT ONLY CLINIC AL INFORM ATION: Back pain. IMAGES PROVID ED: Latera l views of the lumbar spine in flexio n and extens ion. COMPAR BIJU: None. FINDIN GS: Verteb ral body height s are normal . Multip le disc spaces are narrow ed. Fused degene rative spurri ng. No abnorm ality of alignm ent is seen. No instab ility is seen on flexio n or extens ion. No radiog raphic eviden ce of injury is noted. IMPRES COLIN: Modera te diffus e degene rative disc diseas e. No instab ility. Interp reted By: Bakari Sanders MD Electr onical ly Signed By: Bakari Sanders MD on 2022 11:16 AM [facility] [address], [phone], 04/07/2023 22:34:52 04/06/20 23 04/06/2023 XR, hip, bilat eral, 3 or [address] [address] Abdirahman luo Name: NELSON luo : [address]61 Abdirahman luo Orderi ng Provid er: OCHOA VEGA EXAM DATE: 2022 EXAM: XR CHRISTINA HIPS, 3 OR 4 VWS COMPAR BIJU: None. HISTOR Y: Bilate ral hip pain. FINDIN GS: There are mild degene rative change s in both hips. There is mild margin al spurri ng. The joint space appear s normal . There are mild degene rative change s in the SI joints . There is no acute fractu re. IMPRES COLIN: 1. There are mild degene rative change s in the hips and pelvis . Interp reted By: Soledad dwyer MD Electr onical ly Signed By: Soledad dwyer MD on 2022 11:22 AM [facility] [address] [place] [address], [phone], 04/07/2023 22:34:53 04/10/20 23 1960 MRI, lumba r spine , w/o contr ast No observ ation record ed. BARCODE Not Available 2022 09:16:56 04/26/20 23 04/26/2023 nerve condu ction study /EMG, lower extre mity (PROC ) No observ ation record ed. [email or web address] Jena Brunson MD [address] [place], [phone], 04/26/2023 11:55:25 Result Notes Documentation Provider Name and Address Organization Details Recorded Time Xr, Lumbosacral Spine, 2 Or 3 View, Bending Only : [address] [address] Patient Name: NELSON CASPER Patient : 1960 Patient Ordering Provider: AILEEN VEGA EXAM DATE: 04/06/2023 EXAM: XR LUMBAR SPINE FLEX/EXT ONLY CLINICAL INFORMATION: Back pain. IMAGES PROVIDED: Lateral views of the lumbar spine in flexion and extension. COMPARISON: None. FINDINGS: Vertebral body heights are normal. Multiple disc spaces are narrowed. Fused degenerative spurring. No abnormality of alignment is seen. No instability is seen on flexion or extension. No radiographic evidence of injury is noted. IMPRESSION: Moderate diffuse degenerative disc disease. No instability. Interpreted By: Bakari Sanders MD EN VEGA MD [address] [place] [address], [phone], [facility] 04/07/2023 10:56:10 Xr, Hip, Bilateral, 3 Or 4 View : [place] [address] Patient Name: NELSON CASPER Patient : 1960 Patient Ordering Provider: AILEEN VEGA EXAM DATE: 04/06/2023 EXAM: XR CHRISTINA HIPS, 3 OR 4 VWS COMPARISON: None. HISTORY: Bilateral hip pain. FINDINGS: There are mild degenerative changes in both hips. There is mild marginal spurring. The joint space appears normal. There are mild degenerative changes in the SI joints. There is no acute fracture. IMPRESSION: 1. There are mild degenerative changes in the hips and pelvis. Interpreted By: Que Holloway MD EN VEGA MD [address] [place] [address], [phone] 04/07/2023 10:56:10 Problems No Known Problems Procedures Surgical History Date Name Laterality Status Provider Name and Address Organization Details Recorded Time 04/26/20 23 Electromyography (EMG) with Nerve Conduction Study (NCV) completed JENA BRUNSON MD [address] [place] [address], [phone], [facility] 04/26/2023 11:47:45 02/05/20 21 Suture/Staple removal completed ALLISON MCGOWAN PA-C [address] [place] [address], [phone], [facility] 02/08/2021 13:28:49 01/30/20 21 Orthopedic Surgery completed Cam Nash [facility] 02/04/2021 09:31:57 [facility] 04/06/[facility]23 09:10:48 Imaging Results None recorded. Procedure Notes None recorded. Medical Equipment None Reported. Allergies No known drug allergies Medications Name Sig Start Date Stop Date Status Note LastModified by Organization Details LastModified Time hydrocodone 5 mg-acetamino phen 325 mg tablet Take 1 tablet every 4-6 hours by oral route as needed. 02/25 completed Not Available Not Available Not Available Zofran 4 mg tablet Take 1 tablet every 8 hours by oral route as needed. 02/25 completed Not Available Not Available Not Available gabapentin 100 mg capsule Take 1 capsule every day by oral route at bedtime. 02/25 completed Not Available Not Available Not Available Singulair active Not Available Not Abby ilable Not Available Ambien active Not Available Not Availa ble Not Available Low Dose Aspirin active Not Available Not Available Not Available Xyzal active Not Available Not Availa ble Not Available Vitals Date Recorded Body height Body mass index (BMI) Body weight Systolic blood pressure Diastolic blood pressure Provider Name and Address Organization Details Last Updated DateTime 03/23/2021 185.42 cm 24.4 kg/m2 89226.59 g 120 mm[Hg] 65 mm[Hg] Chiara Jade [facility] 10:18:54 Date Recorded Body height Body mass index (BMI) Body weight Systolic blood pressure Diastolic blood pressure Provider Name and Address Organization Details Last Updated DateTime 04/06/2023 185.42 cm 23.1 kg/m2 45193.66 g 122 mm[Hg] 82 mm[Hg] [facility] 3 09:32:08 Date Recorded Body height Body mass index (BMI) Body weight Provider Name and Address Organization Details Last Updated DateTime 04/26/2023 185.42 cm 23.1 kg/m2 69952.66 g Anita Ospina [facility] 04/26/2023 11:04:20 Date Recorded Body height Body mass index (BMI) Body weight Systolic blood pressure Diastolic blood pressure Provider Name and Address Organization Details Last Updated DateTime 05/01/2023 185.42 cm 23.1 kg/m2 00164.6 6 g 120 mm[Hg] 80 mm[Hg] Dayanna Jones [facility] 10:02:19 Date Recorded Body height Body mass index (BMI) Body weight Systolic blood pressure Diastolic blood pressure Provider Name and Address Organization Details Last Updated DateTime 05/04/2021 185.42 cm 24.4 kg/m2 92486.59 g 115 mm[Hg] 73 mm[Hg] Chiara Jade [facility] 10:47:49 Social History None recorded. Functional Status None recorded. Mental Status None recorded. Family History Relationship Description Onset Age of this Age Resolved Age Notes LastModified by Organization Details LastModified Time Unspecified Relation Diabetes mellitus [email or web address] Not available 04/06 09:10:27 Medical History Condition Response Diabetes N Bleeding Disorder N Blood Thinners Y Seizures/Epilepsy N Heart Conditions N Sleep Apnea N Blood Clot N Anesthesia Complications N Heart Attack ([place]) N Cancer N Stroke N COPD N Asthma N Past Encounters Encounter ID Performer Location Encounter Start Date Encounter Closed Date Diagnosis/Indication Diagnosis SNOMED-CT Code Diagnosis ICD10 Code Diagnosis Note [id number] SHAWN SOARES MD [facility] [address] [place] [address] 12/22/2020 14:41:04 12/22/2020 16:27:42 Tear of medial meniscus of knee 863895963 S83.231A [id number] SHAWN SOARES MD SURGERY SCHEDULE [address] [place] [address] 01/29/2021 06:19:07 01/29/2021 06:20:13 [id number] ALLISON MCGOWAN PA-C [facility] [address] [place] [address] 02/04/2021 09:07:45 02/04/2021 10:35:25 Postoperative care [id number] Z48.89 [id number] ALLISON MCGOWAN PA-C [facility] [address] [place] [address] 02/25/2021 09:14:37 02/25/2021 11:17:45 Postoperative care [id number] Z48.89 [id number] SHAWN SOARES MD [facility] [address] [place] [address] 03/23/2021 09:58:04 03/23/2021 10:56:46 Tear of medial meniscus of knee 282231932 S83.231A [id number] SHAWN SOARES MD [facility] [address] [place] [address] 05/04/2021 10:40:47 05/04/2021 11:44:15 Tear of medial meniscus of knee 489016581 S83.231A [id number] AILEEN VEGA [facility] [address] [place] [address] 04/06/2023 08:40:08 04/07/2023 04:56:36 Lumbar spondylolisthesis [id number] 88742 M43.16 Time spent reviewing images, discussing the diagnosis and coordinati ng care: 45min [id number] AILEEN VEGA MD [facility]OS[facility]G [facility] [address] [place] [address] 05/01/2023 09:41:29 05/02/2023 04:29:14 Lumbar radiculopathy 911326378 M54.16 [id number] JENA BRUNSON [facility] [address] [place] [address] 04/26/2023 10:39:44 04/27/2023 15:51:45 Lumbar radiculopathy 109752093 M54.16 right-side d, L4-5 radiculopa thy. No evidence of a right-side d L2-3 or S1 radiculopa thy. Health Concerns Section Related Observation LastModified by Organization Detai ls LastModified Time None Recorded Concern Status LastModified by Organization Details LastModified Time None Recorded Advance Directives Directive None Recorded Payers Insurance Date Sequence Insurance Name Policy Number Policy Garza Covered Member ID Garza Member ID Guarantor Name 04/20/2023 [employer] (MOVED TO HOLD) Nelson Casper 12/07/[address] [facility] [employer] Nelson Casper 04/29/2023 1 [place] [id number] 1 Nelson Casper [id number] Nelson Casper Notes Date Note Type Note Provider Name and Address Organization Details Recorded Time 03/23/2021 text/html 03/23/21 Patient comes in today for FU Right Knee mm/lr.Patient states they are better than last visit. Date of Injury: 11/10/2020 Post Op Date: 01/29/2021 Patient is currently in Physical Therapy in [place] Patient stated that he is still having issues with stairs / squatting / at end of day feels puffiness under Knee cap SHAWN SOARES MD [address] [place] [address] [place], [address], [facility] 03/24/2021 23:20:45 05/04/2021 text/html 05/04/21 Patient comes in today for FU Right Knee mm/lr.Patient states they are better than last visit. Date of Injury: 11/10/2020 Post Op Date: 01/29/2021 patient has completed Physical therapy Patient stated that his right knee is feeling good SHAWN SOARES MD [address] [place] [address] [place], [address], [facility] 05/04/2021 23:21:41 04/06/2023 text/html Mr. Casper is a 63-year-old gentleman presenting with right-sided low back pain for approximately 10 months. He denies any inciting event. The pain is 7 out of 10 and described as a deep ache. The pain is fairly constant and getting worse. He denies any alleviating factors. The pain is made worse with standing and walking. He has to put his weight on his left lower extremity. He describes right lower extremity numbness, tingling and weakness. No loss of bowel or bladder control. No balance difficulties. He has done 6 visits of physical therapy at [facility]. He trialed injections with Dr. Stone without any change at this time. He presents today with an MRI of the lumbar spine performed at [facility] on January 13, 2023. AILEEN VEGA MD [facility] [place], [address], [facility] 04/06/2023 10:12:39 05/01/2023 text/html Mr. Casper is a 63-year-old gentleman with significant degenerative issues at L4-5 and L5-S1. He presents today with EMG/nerve conduction studies performed by Dr. Zhang, as well as some updated hip and lumbar x-rays. He did not bring his MRI back. AILEEN VEGA MD [facility] [place], [address], [facility] 05/01/2023 10:26:36
[2024-12-02 13:46] LABS: Thyroid Stimulating Hormone 3.85 uIU/mL (0.465-4.68)
== END 2024-12-02 23:59 | disposition home or self-care (01) ==
LOC: LAB 11:55
PROVIDERS: PCP Nurse Practitioner Family; Visit Provider Nurse Practitioner Family
DX: E03.9 Hypothyroidism, unspecified (principal)
CPT/HCPCS: 36415; 84439; 84443